=== PATIENT | female | born 1955 | race Caucasian/White ===

== ENCOUNTER → 2018-10-05 07:27 | Outpatient (CLI) | payer BC, SELFPAY ==
--- NOTE | 2018-10-05 07:34 | RAD_ITS ---
STUDY: X-RAY - ABDOMEN/PELVIS REASON FOR EXAM: Female, 63 years old. left sided pain x several months constipation TECHNIQUE: AP supine and upright views of the abdomen and pelvis. 3 images COMPARISON: None. FINDINGS: Normal visualized lung bases. There is no evidence of obstruction. There is a possibility stool with a few air-fluid levels on upright imaging in nondilated bowel. No pneumatosis or signs of bowel wall thickening. There is no demonstrated free abdominal air. The visualized liver, spleen and kidneys are grossly normal in size and morphology. There are calcified phleboliths in the pelvis. Mild degenerative spondylosis of the spine is noted with mild levoscoliosis. RAD/Abd Inc Decub and/or Erect IMPRESSION: No evidence of obstruction. There does appear paucity of stool with a few air-fluid levels on upright imaging in nondilated bowel. Consider enteritis. Electronically Signed: Natacha Kaplan MD at 8:35 EST , Service support ,
== END ==
PROVIDERS: Family Provider Family Medicine; PCP Family Medicine; Referring Provider Family Medicine; Visit Provider Family Medicine
DX: R10.9 Unspecified abdominal pain (principal)
CPT/HCPCS: 74019

== ENCOUNTER → 2019-02-17 12:03 | Outpatient (CLI) | payer BC, SELFPAY ==
[2019-02-17 14:16] LABS: Erythrocyte Sedimentation Rate 6 mm/hr (0-30)
[2019-02-17 14:18] LABS: Absolute Lymphocyte Count 1.32 X10^3/ul (0.83-4.51); Absolute Neutrophil Count 3.5 X10^3/uL (2.0-7.7); Basophil# 0.01 X10^3/uL; Basophil% 0.2 % (0-1); Eosinophil# 0.14 X10^3/uL; Eosinophils% 2.6 % (0-5); Hematocrit 40.2 % (37-47); Hemoglobin 12.9 g/dl (12.0-15.0); Lymphocyte # 1.32 X10^3/ul (4.0); Lymphocyte % 24.2 % (19-41); Mean Corp Hgb Conc 32.1 g/gl (32-36); Mean Corpuscular Hgb 29.7 pg (27.0-32.0); Mean Corpuscular Volume 92.6 fL (81-99); Monocyte# 0.49 X10^3/uL; Neutrophil # 3.49 X10^3/uL (2.7-7.7); Platelet Count 271 K/mm3 (150-450); RBC Distribution Width CV 13.3 % (11.6-14.6); RBC Distribution Width SD 45.1 fl (35.1-43.9); Red Blood Count 4.34 M/mm3 (4.2-5.4); White Blood Count 5.5 K/mm3 (4.4-11.0)
[2019-02-17 14:19] LABS: POSITIVE COUNT NO; POSITIVE DIFFERENTIAL NO; POSITIVE MORPHOLOGY NO
[2019-02-17 14:45] LABS: ALB/GLOB Ratio 1.6 RATIO (0.9-2.4); AST(SGOT) 18 U/L (15-37); Alanine Aminotransfer ALT/SGPT 30 U/L (13-56); Albumin, Serum 4.4 g/dL (3.2-5.0); Alkaline Phosphatase 88 U/L (45-117); Anion Gap 8 (5-15); BUN 16 mg/dL (7-18); BUN/Creat Ratio 25.9 RATIO (10-20); CRP 6.77 mg/L (0.0-3.0); Chloride 104 mmol/L (98-107); Creatinine, Serum 0.62 mg/dL (0.55-1.02); EST Glomerular Filtration Rate 104 mL/min (>60); Est Glom Filt Rate - Afr Amer 126 mL/min (>60); Globulin 2.7 g/dL (2.2-4.2); Glucose 72 mg/dL (74-106); Potassium 4.5 mmol/L (3.5-5.1); Protein, Total 7.1 g/dL (6.4-8.2); Sodium Level 141 mmol/L (136-145)
== END ==
PROVIDERS: Family Provider Family Medicine; PCP Family Medicine; Referring Provider Family Medicine; Visit Provider Family Medicine
DX: R10.32 Left lower quadrant pain (principal)
CPT/HCPCS: 36415; 80053; 85025; 85652; 86140

== ENCOUNTER → 2019-03-22 14:01 | Outpatient (CLI) | payer BC, SELFPAY ==
--- NOTE | 2019-03-22 14:06 | CT_ITS ---
HISTORY: RIGHT [facility]AMINATION: CT Abdomen And Pelvis W/O Contrast TECHNIQUE: Helically acquired images were obtained of the abdomen and pelvis without oral or IV contrast as per renal stone protocol. A radiation dose optimization technique was used for this scan. IV Contrast dosage and agent: None. Oral contrast: None. COMPARISON: 04/13/16 CT abdomen pelvis. Images without report. FINDINGS: LOWER CHEST: Lung bases are clear. No cardiomegaly or pericardial effusion observed. LIVER: Homogeneous. No focal mass. GALLBLADDER AND BILIARY TREE: No calcified gallstones. There is no gallbladder distension or wall edema. No intra- or extrahepatic biliary ductal dilation. KIDNEYS AND URETERS: Normal renal size and position. There is no hydronephrosis or nephrolithiasis. ADRENAL GLANDS: Non-enlarged. SPLEEN: Normal size without focal cystic or solid mass. PANCREAS: No focal cystic or solid mass. BOWEL: No evidence of acute appendicitis. No stomach or bowel distension. No focal inflammatory change observed. Mildly prominent volume of stool in the large bowel. LYMPH NODES: No enlarged mesenteric or retroperitoneal lymph nodes. PERITONEUM: No ascites or free air. No other fluid collection. VESSELS: Moderate atherosclerosis. No abdominal aortic aneurysm. URINARY BLADDER: Unremarkable. REPRODUCTIVE ORGANS: Uterus and ovaries with unremarkable noncontrast CT appearance. Bilateral tubal ligation clips are noted. ABDOMINAL WALL: No discrete abdominal or pelvic wall hernia observed. BONES: No lytic or blastic abnormality observed. CT/Abdomen/Pelvis without Cont IMPRESSION: Negative renal stone CT scan. Individualized dose optimization techniques were used for this CT. at 1444 Reported and signed by: Keon Malik MD Electronically Signed: Keon Malik, at 14:43 EDT Tel , Service support ,
== END ==
PROVIDERS: Family Provider Family Medicine; PCP Family Medicine; Referring Provider Urology; Visit Provider Urology
DX: N20.0 Calculus of kidney (principal); M54.5 Low back pain
CPT/HCPCS: 74176

== ENCOUNTER → 2019-10-03 17:30 | Outpatient (CLI) | payer BC, SELFPAY ==
--- NOTE | 2019-10-03 17:24 | BI_ITS ---
MAMMOGRAPHY - BILATERAL SCREENING REASON FOR EXAM: Female, 64 years old. Routine annual screening examination. PERTINENT HISTORY: Non-contributory. TECHNIQUE: Digital bilateral breast zay (3D mammographic acquisition) in the CC and MLO projections. 2-D mediolateral oblique (MLO) and craniocaudad (CC) views of both breasts were obtained. CAD: Full Field Digital Mammography with Computer Added Detection was performed. COMPARISON: Comparison is made with prior examination dated March 02, 2017 and January 25, 2014. FINDINGS: Breast Composition: There are scattered areas of fibroglandular density. There are no dominant masses or suspicious calcifications. Small bilateral benign-appearing axillary lymph nodes. No other significant abnormalities are identified. There has been no significant change since the prior study. BI/SCREEN MAMM (CAD) W/ZAY BILAT IMPRESSION: Stable bilateral screening mammogram. Yearly follow-up mammogram recommended. (A) ASSESSMENT CATEGORY: BIRADS Category 2: Benign. A letter regarding these results will be sent to the patient by the facility within 30 days. Approximately 10% of breast cancers are not detected by mammography. A normal mammogram should not delay biopsy of a clinically suspicious abnormality. [id number] Electronically Signed: Bc Ferrera, at 8:46 EST , Service support ,
== END ==
PROVIDERS: Family Provider Family Medicine; PCP Family Medicine; Referring Provider Family Medicine; Visit Provider Family Medicine
DX: Z12.31 Encounter for screening mammogram for malignant neoplasm of breast (principal)
CPT/HCPCS: 77063; 77067

== ENCOUNTER → 2021-04-14 16:28 | Outpatient (CLI) | payer OTHER, SELFPAY ==
[2021-04-14 15:25] VITALS: BMI 30.2
[2021-04-18 16:36] LABS: HPV APTIMA, High Risk Negative (Negative)
== END ==
PROVIDERS: PCP Family Medicine; Referring Provider Obstetrics & Gynecology; Visit Provider Obstetrics & Gynecology
DX: Z12.4 Encounter for screening for malignant neoplasm of cervix (principal)
CPT/HCPCS: 87624; 88175; G0145

== ENCOUNTER → 2021-06-06 07:44 | Outpatient (CLI) | payer OTHER, SELFPAY ==
[2021-04-14 15:25] VITALS: BMI 30.2
--- NOTE | 2021-06-05 16:31 | BI_ITS ---
MAMMOGRAPHY - BILATERAL SCREENING REASON FOR EXAM: Female, 65 years old. Routine annual screening examination. PERTINENT HISTORY: Non-contributory. TECHNIQUE: Digital bilateral breast zay (3D mammographic acquisition) in the CC and MLO projections. 2-D mediolateral oblique (MLO) and craniocaudad (CC) views of both breasts were obtained. CAD: Full Field Digital Mammography with Computer Added Detection was performed. COMPARISON: Comparison is made with prior examination dated 10/03/2019 and 03/02/2017. FINDINGS: Breast Composition: There are scattered areas of fibroglandular density. There is a new 7.8 mm x 8 mm well-defined nodule in the central deep portion of the left breast. Correlation with ultrasound is recommended. Stable small benign appearing bilateral axillary lymph nodes. No other significant abnormalities are identified. BI/SCRN MAMM (CAD)W/ZAY BILAT IMPRESSION: 7.8 mm x 8 mm well-defined nodule in the central deep portion of the left breast. Correlation with ultrasound is recommended. ASSESSMENT CATEGORY: BIRADS Category 0: Incomplete. Need additional imaging evaluation. A letter regarding these results will be sent to the patient by the facility within 30 days. Approximately 10% of breast cancers are not detected by mammography. A normal mammogram should not delay biopsy of a clinically suspicious abnormality. [id number] Electronically Signed: Bc Ferrera MD at 8:18 EDT , Service support ,
== END ==
PROVIDERS: PCP Family Medicine; Referring Provider Family Medicine; Visit Provider Family Medicine
DX: Z12.31 Encounter for screening mammogram for malignant neoplasm of breast (principal); N63.20 Unspecified lump in the left breast, unspecified quadrant
CPT/HCPCS: 77063; 77067

== ENCOUNTER → 2021-06-17 14:50 | Outpatient (CLI) | payer OTHER, SELFPAY ==
[2021-04-14 15:25] VITALS: BMI 30.2
--- NOTE | 2021-06-17 14:55 | US_ITS ---
STUDY: ULTRASOUND BREAST - LEFT REASON FOR EXAM: Female, 65 years old. Abnormal screening mammogram. TECHNIQUE: Axial and longitudinal images of the LEFT breast were performed with a high resolution ultrasound transducer. # OF IMAGES: 31 COMPARISON: Comparison is made with prior mammogram dated 06/05/2021. FINDINGS: LEFT Breast: The mammographic abnormality corresponds to a 6 mm x 7.8 mm x 4 mm cyst in the retroareolar region of the breast. US/Breast Limited Unilateral IMPRESSION: The mammographic abnormality corresponds to a 6 mm x 7.8 mm x 4 mm cyst in the retroareolar areolar region of the breast. ASSESSMENT CATEGORY: BIRADS Category 2: Benign. A letter regarding these results will be sent to the patient by the facility within 30 days. Electronically Signed: Bc Ferrera MD at 15:32 EDT , Service support ,
== END ==
PROVIDERS: PCP Family Medicine; Referring Provider Obstetrics & Gynecology; Visit Provider Obstetrics & Gynecology
DX: R92.8 Other abnormal and inconclusive findings on diagnostic imaging of breast (principal)
CPT/HCPCS: 76642

== ENCOUNTER → 2021-07-17 09:40 | Outpatient (CLI) | payer OTHER, SELFPAY | PROVIDERS: PCP Family Medicine; Referring Provider Obstetrics & Gynecology; Visit Provider Obstetrics & Gynecology | DX: R30.0 Dysuria (principal) | CPT/HCPCS: 87086; 87088; 87186 ==

== ENCOUNTER 2022-01-26 17:43 | Outpatient (CLI) | payer BC, SELFPAY | END 2022-01-26 23:59 | disposition home or self-care (01) | PROVIDERS: PCP Family Medicine; Referring Provider Family Medicine; Visit Provider Family Medicine | DX: U07.1 COVID-19 (principal) | CPT/HCPCS: 87635; U0003; U0005 ==

== ENCOUNTER 2022-01-28 14:16 | Outpatient (CLI) | payer BC, SELFPAY ==
[2022-01-28] MEDS: 0.9% Saline Lock 10 ML Syringe IV (14:35)
[2022-01-28 14:36] VITALS: BP 131/81; PULSE 91; RESP 16; TEMP 37.1; O2SAT 99; BMI 31.7
[2022-01-28 15:13] VITALS: BP 127/80; PULSE 72; RESP 16; TEMP 36.9; O2SAT 97
[2022-01-28 16:11] VITALS: BP 123/89; PULSE 82; RESP 16; TEMP 36.7; O2SAT 99
== END 2022-01-28 23:59 | disposition home or self-care (01) ==
LOC: MS3OUT 14:18 → MS3 14:18
PROVIDERS: PCP Family Medicine; Referring Provider Nurse Practitioner Adult Health; Visit Provider Nurse Practitioner Adult Health
DX: U07.1 COVID-19 (principal)
CPT/HCPCS: 96365; J7050; M0247; A4216; Q0247

== ENCOUNTER → 2022-06-11 | Outpatient (CLI) | payer BC, SELFPAY ==
--- NOTE | 2022-06-11 14:01 | RAD_ITS ---
STUDY: X-RAY - LEFT KNEE REASON FOR EXAM: Female, 66 years old. PAIN IN KNEE TECHNIQUE: 4 view(s) of the knee. COMPARISON: None. FINDINGS: BONES: No fracture demonstrated. Mild joint space narrowing at the patellofemoral joint space. JOINTS: No dislocation. SOFT TISSUES: Small joint effusion. RAD/Knee 4 or More Views IMPRESSION: Mild degenerative changes. Small joint effusion. Electronically Signed: Jessi Oliver MD at 7:57 EDT ,
== END | disposition home or self-care (01) ==
LOC: MTRAD 13:59
PROVIDERS: PCP Family Medicine; Referring Provider Family Medicine; Visit Provider Family Medicine
DX: M25.562 Pain in left knee (principal)
CPT/HCPCS: 73564

== ENCOUNTER 2022-07-06 10:53 | Emergency (ER) | payer BC, SELFPAY ==
[2022-07-06 10:55] VITALS: BP 116/105; PULSE 82; RESP 17; TEMP 36.2; O2SAT 99; BMI 33.5
--- NOTE | 2022-07-06 12:04 | ED.VIS.LOWEX ---
HPI History of Present Illness HPI Narrative: Patient presents with left knee pain that became worse today. Patient states she injured her knee 3 weeks ago and had x-rays done at an urgent care. Patient states there was no fracture. Patient states she was told there could be a meniscal tear. Patient states she has been feeling some popping and cracking since the injury. Patient states that today while she was walking at work she felt a crack in her knee. Patient states she has been unable to bear weight and ambulate due to the pain since that time today. Patient describes her pain as stabbing. Patient states her pain is worse with standing and better with rest. Patient denies any paresthesias or weakness. Patient denies any radiation of the pain. Chief Complaint: Lower Extremity Injury Informant: patient Occured/Mechanism Comment: [place] a crack in her knee while walking today Onset/Context/Timing Onset: Weeks (3) Context: Sudden Onset Timing: Continuous Quality of Pain: Stabbing Location: Left knee Worsened by: Standing, ambulation Relieved by: Rest Associated Symptoms Associated Symptoms: Negative for Parasthesia, Weakness or Loss of Funtion PFSH PFSH Medical History no medical history no medical history Home Medications NK 07/06/22 [History Last Taken Unknown] Allergy/AdvReac Type Severity Reaction Status Date / Time No Known Allergies Allergy Verified 07/06/22 10:54 Family History Father Diabetes Prostate cancer Mother Osteoarthritis Sister Autoimmune disease Brother CAD (coronary artery disease) Retinal toxoplasmosis Surgical History S/P tubal ligation Social History Smoking Status: Never smoker alcohol intake: current alcohol intake frequency: holidays/special occasions only substance use type: does not use caffeine: Yes what type of physical activity do you participate in: none seatbelt use: always do you feel safe at home: Yes additional social history: -[facility] Constitutional Constitutional ED: Denies chills or fever(s) Eyes Eyes: Denies blurry vision or change in vision ENT ENT ED: Denies rhinorrhea or sore throat Cardiovascular Cardiovascular: Denies chest pain or palpitations Respiratory/Chest Respiratory/Chest: Denies cough or dyspnea Gastrointestinal Gastrointestinal: Denies nausea or vomiting Genitourinary Genitourinary ED: Denies dysuria or hematuria Musculoskeletal Musculoskeletal: Denies back pain or neck pain Integumentary Denies abscess or rash Neurologic Neurologic: Denies headache(s) or weakness Allergic/Immunologic Allergic/Immunologic ED: Denies mouth swelling or urticaria EXAM Physical Exam Const Vital Signs: 07/06/22 10:55 07/06/22 13:04 Temperature 97.2 F L 97.9 F Temperature Source Temporal Oral Pulse Rate 82 73 Respiratory Rate 17 16 Blood Pressure 116/105 H 140/85 H Blood Pressure Mean 108 103 Pulse Ox 99 97 Oxygen Delivery Method Room Air Room Air Positive well nourished and well developed General Appearance ED: well developed and NAD HEENT Reports moist mucous membranes Extremity Extremity Narrative: There is tenderness over the posterior lateral aspect of the left knee. There is no effusion. Range of motion was slightly limited in flexion secondary to pain. There is no obvious deformity. There is no laxity appreciated. Pedal pulses are equal bilaterally. Sensation was intact to light touch in all digits. Capillary refills less than 2 seconds in all digits. Neuro oriented x3, CN's II-XII intact bilaterally, moves all extremities and no sensory deficits noted Sensorium / Orientation: alert Motor Exam: strength 5/5 throughout Psych mental status grossly normal MDM MDM MDM Narrative Medical decision making narrative: X-rays of the left knee were obtained. There are 4 views. On my interpretation, there is no acute fracture. There is no dislocation. There is no effusion. There is no soft tissue swelling. Radiologist also interpreted the x-rays and agrees. Patient was given a knee immobilizer. Patient was given crutches. Patient was instructed to ice and elevate the left knee. Patient was advised that this could be an injury to the meniscus. Patient was advised that she may need an MRI to evaluate that. Patient was instructed to follow-up with her primary care physician in 5 to 7 days. Patient understood and was agreeable with the plan. All questions were answered. Radiography Diagnostic Testing: Clinical Impression(s) from Imaging Studies Knee X-Ray 07/06/22 12:09 IMPRESSION: Normal x-ray examination of the knee. Electronically Signed: Bc Ferrera MD at 13:09 EDT , Discharge Plan Triage Chief Complaint: Lower Extremity Injury ED Provider: Chirag Díaz Dx/Rx/DC Orders Clinical Impression: Sprain of left knee Instructions: ED Meniscal Injury Knee Poss, ED Knee Sprain Prescriptions: No Action NK Primary Care Provider: Chirag Owen Referrals: Chirag Owen MD [Primary Care Provider] - 5-7 Days Disposition Disposition: Home, Self Care
--- NOTE | 2022-07-06 12:09 | RAD_ITS ---
STUDY: X-RAY - LEFT KNEE REASON FOR EXAM: Female, 67 years old. Injury/Pain TECHNIQUE: 4 view(s) of the knee. COMPARISON: Comparison is made with prior examination dated 06/11/2022. FINDINGS: Normal visualized distal femur. Normal visualized proximal tibia and fibula. Normal proximal tibiofibular articulation. Normal medial femorotibial compartment. Normal lateral femorotibial compartment. Normal patellofemoral articulation. The soft tissue structures are unremarkable. RAD/Knee 4 or More Views IMPRESSION: Normal x-ray examination of the knee. Electronically Signed: Bc Ferrera MD at 13:09 EDT ,
[2022-07-06 13:04] VITALS: BP 140/85; PULSE 73; RESP 16; TEMP 36.6; O2SAT 97
[2022-07-06 14:16] VITALS: BP 148/83; PULSE 82; RESP 16; O2SAT 98
== END 2022-07-06 14:20 | disposition home or self-care (01) ==
PROVIDERS: Emergency Provider Emergency Medicine; PCP Family Medicine; Visit Provider Emergency Medicine
DX: S83.92XA Sprain of unspecified site of left knee, initial encounter (principal); X58.XXXA Exposure to other specified factors, initial encounter; Y93.01 Activity, walking, marching and hiking
CPT/HCPCS: 73564; 99284

== ENCOUNTER → 2022-07-31 | Outpatient (CLI) | payer BC, SELFPAY ==
[2022-07-31 10:03] LABS: Absolute Neutrophil Count 3.6 X10^3/uL (2.0-7.7); Basophil# 0.04 X10^3/uL; Basophil% 0.7 % (0-1); Eosinophil# 0.08 X10^3/uL; Eosinophils% 1.5 % (0-5); Hematocrit 41.8 % (37-47); Hemoglobin 13.9 g/dL (12.0-15.0); Mean Corp Hgb Conc 33.3 g/dL (32-36); Mean Corpuscular Hgb 30.6 pg (27.0-32.0); Mean Corpuscular Volume 92.1 fL (81-99); Mean Platelet Vol. 9.8 fl (6.2-12.0); Monocyte# 0.56 X10^3/uL; Monocyte% 10.3 % (0-10); NRBC Flagged by Analyzer 0 % (0-5); Neutrophil # 3.55 X10^3/uL (2.7-7.7); Neutrophil % 65.1 % (47-70); Platelet Count 276 K/mm3 (150-450); RBC Distribution Width CV 13.1 % (11.6-14.6); Red Blood Count 4.54 M/mm3 (4.2-5.4); White Blood Count 5.5 K/mm3 (4.4-11.0)
[2022-07-31 10:38] LABS: Anion Gap 6 (5-15); BUN 17 mg/dL (7-18); BUN/Creat Ratio 25.4 RATIO (10-20); Calcium,Total 9.2 mg/dL (8.5-10.1); Chloride 106 mmol/L (98-107); Cholesterol 278 mg/dL (200); Creatinine, Serum 0.67 mg/dL (0.55-1.02); EST Glomerular Filtration Rate 93 mL/min (>60); Est Glom Filt Rate - Afr Amer 113 mL/min (>60); Glucose 95 mg/dL (74-106); High Density Lipoprotein 68 mg/dL; Sodium Level 139 mmol/L (136-145); Triglycerides 93 mg/dL; Very Low Density Lipoprotein 19 mg/dL (5-40)
== END | disposition home or self-care (01) ==
LOC: MFPLAB 09:07
PROVIDERS: PCP Family Medicine; Visit Provider Family Medicine
DX: Z01.818 Encounter for other preprocedural examination (principal)
CPT/HCPCS: 36415; 80048; 80061; 85025

== ENCOUNTER → 2024-03-09 | Outpatient (CLI) | payer BC, SELFPAY ==
[2024-03-13 00:06] LABS: Chlamydia By Nucleic Acid AMP Negative (Negative); Gonococcus By Nucleic Acid AMP Negative (Negative)
== END | disposition home or self-care (01) ==
PROVIDERS: PCP Family Medicine; Visit Provider Nurse Practitioner Women's Health
DX: N89.8 Other specified noninflammatory disorders of vagina (principal)
CPT/HCPCS: 87070; 87205; 87491; 87591

== ENCOUNTER → 2024-05-01 | Outpatient (CLI) | payer BC, SELFPAY ==
--- NOTE | 2024-05-01 15:51 | BI_ITS ---
MAMMOGRAPHY - BILATERAL SCREENING REASON FOR EXAM: Female, 68 years old. Routine annual screening examination. PERTINENT HISTORY: Non-contributory. TECHNIQUE: Digital bilateral breast zay (3D mammographic acquisition) in the CC and MLO projections. 2-D mediolateral oblique (MLO) and craniocaudad (CC) views of both breasts were obtained. CAD: Full Field Digital Mammography with Computer Added Detection was performed. COMPARISON: Comparison is made with prior study dated June 05, 2021 and October 03, 2019. FINDINGS: Breast Composition: There are scattered areas of fibroglandular density. There are no dominant masses or suspicious calcifications. The previously seen 8 mm well-defined nodule in the central deep portion of the left breast is not well seen at this time and most likely represents resorption of a cyst. No other significant abnormalities are identified. There has been no significant change since the prior study. BI/SCRN MAMM (CAD)W/ZAY BILAT IMPRESSION: Stable bilateral screening mammogram. Yearly follow-up mammogram recommended. (A) ASSESSMENT CATEGORY: BIRADS Category 2: Benign. A letter regarding these results will be sent to the patient by the facility within 30 days. Approximately 10% of breast cancers are not detected by mammography. A normal mammogram should not delay biopsy of a clinically suspicious abnormality. [id number] Electronically Signed: Bc Ferrera MD at 8:49 EDT ,
== END | disposition home or self-care (01) ==
LOC: OPBI 15:51
PROVIDERS: PCP Family Medicine; Referring Provider Nurse Practitioner Women's Health; Visit Provider Nurse Practitioner Women's Health
DX: Z12.31 Encounter for screening mammogram for malignant neoplasm of breast (principal)
CPT/HCPCS: 77063; 77067

== ENCOUNTER → 2024-07-10 | Outpatient (CLI) | payer BC, SELFPAY ==
[2024-07-13 07:09] LABS: Chlamydia By Nucleic Acid AMP Negative (Negative); Gonococcus By Nucleic Acid AMP Negative (Negative)
== END | disposition home or self-care (01) ==
LOC: LABSPEC 14:56
PROVIDERS: PCP Family Medicine; Referring Provider Nurse Practitioner Women's Health; Visit Provider Nurse Practitioner Women's Health
DX: R10.2 Pelvic and perineal pain (principal)
CPT/HCPCS: 87491; 87591

== ENCOUNTER → 2024-07-19 | Outpatient (CLI) | payer BC, SELFPAY ==
--- NOTE | 2024-07-19 17:38 | US_ITS ---
STUDY: ULTRASOUND OF THE FEMALE PELVIS - COMPLETE REASON FOR EXAM: Female, 69 years old. Pelvic pain. LMP: Postmenopausal. TECHNIQUE: Transabdominal and Transvaginal TECHNICAL QUALITY: Adequate. COMPARISON: None. FINDINGS: The uterus is retroverted and is in a midline position. The uterus measures 6.8 cm x 5.7 cm x 4 cm. Normal uterine cervix. The endometrium is slightly thickened and measures 4 mm in thickness, and is fluid distended. There is no demonstrated endometrial mass. There is no demonstrated myometrial mass. I.U.D. - The patient does not have an I.U.D. The right ovary is visualized. The right ovary measures 1.9 cm x 0.9 cm x 0.8 cm. There is no right ovarian cyst or ovarian mass. There is no visualized right adnexal mass or complex lesion. There is normal arterial and normal venous vascularity. The left ovary is visualized. The left ovary measures 2 cm x 1.4 cm x 1.1 cm. There is a 1.8 cm x 1 cm x 0.8 cm follicle adjacent to the left ovary. There is no visualized left adnexal mass or complex lesion. There is normal arterial and normal venous vascularity. There is no fluid in the cul-de-sac. The pre void volume of the bladder was 256 ml. US/Pelvic w/ Transvaginal IMPRESSION: Minimal thickening of the endometrium and fluid distended. 1.8 cm x 1 cm x 0.8 some with follicle adjacent to the left ovary. Electronically Signed: Bc Ferrera MD at 15:39 EDT ,
== END | disposition home or self-care (01) ==
LOC: US 17:33
PROVIDERS: PCP Family Medicine; Referring Provider Nurse Practitioner Women's Health; Visit Provider Nurse Practitioner Women's Health
DX: R10.2 Pelvic and perineal pain (principal)
CPT/HCPCS: 76830; 76856

== ENCOUNTER → 2024-08-16 | Outpatient (CLI) | payer BC, SELFPAY ==
--- NOTE | 2024-08-16 12:44 | US_ITS ---
STUDY: ULTRASOUND OF THE FEMALE PELVIS - COMPLETE REASON FOR EXAM: Female, 69 years old. Chronic pelvic pain LMP: TECHNIQUE: Transabdominal and Transvaginal TECHNICAL QUALITY: Adequate. COMPARISON: 07/19/2024. FINDINGS: The uterus is retroverted and is in a midline position. The uterus measures 6.9 x 5.0 x 3.3 cm. Normal uterine cervix. The endometrium measures 3 mm in thickness, and is hyperechoic. Trace fluid of the endocervical canal. There is no demonstrated endometrial mass. There is no demonstrated myometrial mass. I.U.D. - The patient does not have an I.U.D. The right ovary is visualized. The right ovary measures 2.7 x 1.4 x 0.9 cm. There is no right ovarian cyst or ovarian mass. There is no visualized right adnexal mass or complex lesion. There is normal arterial and normal venous vascularity. The left ovary is visualized. The left ovary measures 2.5 x 1.5 x 1.2 cm. There is a 1.9 cm cyst. There is no visualized left adnexal mass or complex lesion. There is normal arterial and normal venous vascularity. There is no fluid in the cul-de-sac. The pre void volume of the bladder was 552 ml. US/Pelvic w/ Transvaginal IMPRESSION: No definite acute or significant abnormality seen. Electronically Signed: Gopi Eckert MD at 22:20 EDT ,
== END | disposition home or self-care (01) ==
PROVIDERS: PCP Family Medicine; Referring Provider Nurse Practitioner Women's Health; Visit Provider Nurse Practitioner Women's Health
DX: R10.2 Pelvic and perineal pain (principal)
CPT/HCPCS: 76830; 76856

== ENCOUNTER → 2024-10-19 | Outpatient (CLI) | payer BC, SELFPAY ==
--- NOTE | 2024-10-19 09:43 | RAD_ITS ---
STUDY: X-RAY - LEFT HAND, ATTENTION FIRST FINGER REASON FOR EXAM: Female, 69 years old. Left thumb pain TECHNIQUE: 3 view(s) of the finger were obtained. COMPARISON: None. FINDINGS: Osteopenia. Moderate arthrosis of the radial carpal row of the wrist with subchondral cyst formation in the trapezium. Moderate to severe arthrosis of the first CMC joint with osteophytes and sclerosis. Small ossicles/intra-articular osteochondral bodies of the first CMC joint. Moderate arthrosis of the first MCP and IP joints. Normal soft tissues. 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 No other abnormality. Electronically Signed: Jeet Peace MD at 10:50 EST ,
== END | disposition home or self-care (01) ==
PROVIDERS: PCP Family Medicine
DX: R68.89 Other general symptoms and signs (principal); M79.645 Pain in left finger(s); R10.32 Left lower quadrant pain
CPT/HCPCS: 73140

== ENCOUNTER → 2025-01-03 | Outpatient (CLI) | payer BC, SELFPAY ==
--- NOTE | 2025-01-03 17:50 | CT_ITS ---
PROCEDURE: ABDOMEN/PELVIS WITH CONTRAST REASON FOR EXAM: Left lower quadrant abdominal pain TECHNIQUE: Abdomen and pelvis CT with intravenous contrast. Oral contrast was also used. IV CONTRAST: COMPARISON: None. FINDINGS: Lung bases: Clear Liver: Unremarkable. Gallbladder: Decompressed gallbladder. Spleen: Unremarkable. Pancreas: Tiny low attenuating lesion within the pancreatic tail, too small to characterize. Adrenals: Unremarkable. Kidneys: Unremarkable. Bladder: Unremarkable. Reproductive Organs: Unremarkable. Bowel: Oral contrast reaches the distal small bowel. The stomach appears grossly unremarkable. No inflammatory changes of the small large bowel. Mild stool burden within the right colon. Appendix: The appendix is not identified. There is no inflammatory process identified in the right lower quadrant to suggest appendicitis. Lymph nodes: No suspicious lymph node enlargement. Vasculature: Mild diffuse atherosclerotic calcifications are noted. Peritoneum / Retroperitoneum: No ascites. No free air. Bones: Unremarkable. CT/Abdomen/Pelvis WITH Contrast IMPRESSION: No inflammatory changes of the bowel loops are demonstrated. One or more dose reduction techniques were used (e.g., Automated exposure contr ol, adjustment of the mA and/or kV according to patient size, use of iterative reconstruction technique). Reading Location: [id number]
== END | disposition home or self-care (01) ==
PROVIDERS: PCP Family Medicine; Referring Provider Family Medicine; Visit Provider Family Medicine
DX: R10.32 Left lower quadrant pain (principal)
CPT/HCPCS: 74177; Q9967

== ENCOUNTER 2025-04-29 17:13 | Emergency (ER) | payer MEDICARE, SELFPAY ==
[2025-04-29 17:14] VITALS: BP 155/83; PULSE 83; RESP 16; TEMP 36.7; O2SAT 98; BMI 32.5
--- NOTE | 2025-04-29 17:26 | ED.VIS.LOWEX ---
HPI History of Present Illness Chief Complaint: Lower Extremity Injury Narrative Narrative: 69-year-old female presents with right knee pain that has increased today. She and her partner relate history that she had a fall a few days ago onto her right knee. She had been able to ambulate. Today, she states that her knee pain has increased significantly. She denies any fevers or chills, no redness to the area. The pain is extreme in her knee that she is only able to crawl and is unable to bear weight on it. She is having problems extending it as well. She denies that when she fell she had any hitting of her head or loss of consciousness. PFSH [facility] Medical History Pain of left thumb History of meniscal tear Left shoulder pain COVID-19 Home Medications ?Medication ?Instructions ?Recorded ?Last Taken ?Type oxycodone 5 mg tablet 5 mg PO Q6H PRN pain 3 days #12 04/29/25 Unknown Rx tabs Allergy/AdvReac Type Severity Reaction Status Date / Time No Known Allergies Allergy Verified 04/29/25 17:14 Family History Father Diabetes Prostate cancer Mother Osteoarthritis Sister Autoimmune disease Brother CAD (coronary artery disease) Retinal toxoplasmosis Surgical History S/P tubal ligation Social History Smoking Status: Never smoker alcohol intake: current alcohol intake frequency: holidays/special occasions only substance use type: does not use caffeine: Yes what type of physical activity do you participate in: none seatbelt use: always do you feel safe at home: Yes additional social history: ROS ROS ED ROS Narrative Review of systems positive for right knee pain. No fevers or chills, no nausea or vomiting. Pain worse with movement and weightbearing. Unable to walk. EXAM Physical Exam Narrative Exam Narrative: GCS 15. ABCs intact. Cardiovascular examination regular rate and rhythm. Lungs clear to auscultation bilaterally. Abdomen soft nontender. Neurological examination nonfocal and nonlateralizing. Patient is holding her knee in flexion on the right. She appears neurovascularly intact distally with a dorsalis pedis pulse that is palpable. She has mild tenderness in the right posterior medial biceps for Deven tendon, no crepitance. She also has pain along the lateral collateral ligament and in the medial meniscal line. Const Vital Signs: 04/29/25 17:14 Temperature 98.1 F Temperature Source Oral Pulse Rate 83 Respiratory Rate 16 Blood Pressure 155/83 H Blood Pressure Mean 107 Pulse Ox 98 Oxygen Delivery Method Room Air MDM MDM MDM Narrative Medical decision making narrative: Differential diagnosis includes but not limited to knee contusion versus medial meniscus cartilage tear versus medial collateral ligament tear versus biceps for Deven strain/sprain. I have low suspicion for DVT or arthritis as the history and physical does not support this. I do not feel that she requires any laboratory work or arthrocentesis. She was administered oxycodone and x-rays were obtained of the right knee and 4 views. They were interpreted by myself independently. I see no evidence of an acute fracture or effusion. I reviewed the radiology report which comments on the superior patellar enthesophyte which is not attached to the patella and could be fractured. It is of indeterminate chronicity favored remote given no significant joint effusion or soft tissue swelling. On direct correlation, she is not having tenderness in that area. At this point in time, there is mild arthritis noted on x-ray as well. I feel she can be discharged to follow-up with orthopedics. She probably has more of an internal derangement of her knee. She will be placed in a knee immobilizer and given a walker to help with ambulation. She can be touchdown weightbearing. Additionally, I discussed with her the possibility of observation given her inability to ambulate freely, but she declined. She was written for a walker, and 12 oxycodone 5 mg tablets to help with analgesia. She will follow-up with orthopedics as an outpatient. Return instructions to the emergency department were reviewed. Disposition is discharge, home in stable condition. History & Record Review Discussion w/independent historian: Patient Radiography X-Ray: Read by ED Physician, Read by Radiologist and No Fracture Diagnostic Testing: Clinical Impression(s) from Imaging Studies Knee X-Ray 04/29/25 17:30 IMPRESSION: 1. Superior patellar enthesophyte which is not attached to the patella, and could be fractured. This finding is of indeterminate chronicity, favored remote given no significant joint effusion or soft tissue swelling. Correlate for tenderness to palpation. 2. Mild osteoarthritis. Reading Location: [id number] Discharge Plan Triage Chief Complaint: Lower Extremity Injury ED Provider: Florentin Briceno Dx/Rx/DC Orders Clinical Impression: Knee pain, right, Internal derangement of right knee Instructions: ED Meniscal Injury Knee Poss, ED Home Care For Knee Pain, ED Knee Sprain Ligaments Prescriptions: New oxycodone 5 mg tablet 5 mg PO Q6H PRN (Reason: pain) 3 Days Qty: 12 0RF Primary Care Provider: Estefania Braxton Referrals: Chirag Owen MD [Med Staff - Outside Residential Sales Professional] - Robbin Mcelroy DO [Med Staff - Active Staff] - As soon as possible Activity Restrictions/Additional Instructions: Follow-up with orthopedics as soon as possible. Return to the emergency department with fever, redness to right knee, new or worsening symptoms. Print Language: Khmer Disposition Disposition: Home, Self Care
--- NOTE | 2025-04-29 17:30 | RAD_ITS ---
PROCEDURE: KNEE 4 OR MORE VIEWS 04/29/2025 REASON FOR EXAM: TRAUMA, PAIN TECHNIQUE: 4 view(s) of the right knee COMPARISON: None FINDINGS: There is a tiny osseous fragment just superior to the patella. Mild joint space narrowing in the medial and patellofemoral compartments. No significant joint effusion. The soft tissues are unremarkable. RAD/Knee 4 or More Views IMPRESSION: 1. Superior patellar enthesophyte which is not attached to the patella, and co uld be fractured. This finding is of indeterminate chronicity, favored remote given no significant joint effusion or soft tissue swelling. Correlate for tenderness to palpation. 2. Mild osteoarthritis. Reading Location: [facility]
[2025-04-29] MEDS: oxyCODONE 5 MG Tablet PO (17:31)
== END 2025-04-29 18:40 | disposition home or self-care (01) ==
PROVIDERS: Emergency Provider Emergency Medicine; PCP Nurse Practitioner Family; Visit Provider Emergency Medicine
DX: M25.561 Pain in right knee (principal); M23.91 Unspecified internal derangement of right knee; Z98.51 Tubal ligation status; Z86.16 Personal history of COVID-19; Z91.81 History of falling
CPT/HCPCS: 73564; 99283

== ENCOUNTER → 2025-05-04 | Outpatient (CLI) | payer MEDICARE, SELFPAY ==
--- NOTE | 2025-05-04 14:27 | MRI_ITS ---
PROCEDURE: LOWER EXT JOINT ONLY (ROUTINE) 05/04/2025 REASON FOR EXAM: RIGHT KNEE PAIN TECHNIQUE: MRI of the right knee without contrast. Multiplanar and multisequence images were obtained without IV contrast administration. COMPARISON: COMPARISON : Right knee study of 04/29/2025. FINDINGS: Bone Marrow: No acute osseous signal changes are seen. Effusion: No significant right knee joint effusion is seen. A small Manley's cyst is noted, however. A torn root of the posterior horn of the medial meniscus is seen, best noted coronal images 21 and 22. No lateral meniscal tear is noted. Mild degenerative changes of the medial and patellofemoral compartments of the right knee are seen. Mild irregular articular cartilage thinning is seen of the lateral facet patella. In the medial compartment, mild irregular articular cartilage thinning is most apparent at the medial femoral condyle Ligaments and Tendons: Cruciate collateral ligaments appear intact. Visualized extensor tendons appear intact. MRI/Lower Ext Joint Only (Routine) IMPRESSION: 1. Torn root of the posterior horn of the medial meniscus. 2. Small Manley's cyst. 3. Degenerative changes, most apparent at medial compartment. Reading Location: [id number]
== END | disposition home or self-care (01) ==
PROVIDERS: PCP Nurse Practitioner Family; Referring Provider Orthopaedic Surgery; Visit Provider Orthopaedic Surgery
DX: S83.241A Other tear of medial meniscus, current injury, right knee, initial encounter (principal); M23.91 Unspecified internal derangement of right knee
CPT/HCPCS: 73721

== ENCOUNTER → 2025-05-08 | Outpatient (CLI) | payer MEDICARE, SELFPAY ==
--- NOTE | 2025-05-08 16:15 | BD_ITS ---
PROCEDURE: DEXA BONE DENSITY STUDY 05/08/2025 REASON FOR EXAM: F, age 69 y/o . Postmenopausal. TECHNIQUE: DXA scan of sites with data reported below. REFERENCE LINKS: [facility] [place] Position[facility] COMPARISON: Prior study dated January 25, 2014. FINDINGS: BMD and T-SCORES Lumbar spine: 0.798 g/cm2, T-score -2.3 Levels: L1 through L4 Change from prior: Loss of 11.3%. Left femoral neck: 0.678 g/cm2, T-score -1.5 Femoral neck comparison data not recommended for monitoring change. Left total hip: 0.812 g/cm2, T-score -1.1 Change from prior: Loss of 4.9%. Right femoral neck: 0.712 g/cm2, T-score -1.2 Femoral neck comparison data not recommended for monitoring change. Right total hip: 0.836 g/cm2, T-score -0.9 Change from prior: Loss of 5.2%. The World Health Organization has defined the following categories based on bone density: Normal bone density: T-score equal to or greater than -1.0 Osteopenia: T-score between -1.0 and -2.5 Osteoporosis: T-score equal to or less than -2.5 The patient does meet the pharmacological treatment recommendations for prevention of osteoporosis. BD/Dexa Bone Density Study IMPRESSION: OSTEOPENIA. Recommend follow-up as clinically warranted. Reading Location: [place] [id number]
== END | disposition home or self-care (01) ==
LOC: OPBD 16:11
PROVIDERS: PCP Nurse Practitioner Family; Referring Provider Nurse Practitioner Family; Visit Provider Nurse Practitioner Family
DX: Z13.820 Encounter for screening for osteoporosis (principal); Z78.0 Asymptomatic menopausal state
CPT/HCPCS: 77080

== ENCOUNTER 2025-07-10 06:30 | Day surgery (SDC) | payer MEDICARE, SELFPAY ==
[2025-07-10] VITALS (11 sets, daily range): BP systolic 128–154; BP diastolic 72–92; PULSE 80–98; RESP 16–18; TEMP 36.3–36.6; O2SAT 95–100; BMI 33.7
--- OUTSIDE RECORDS SUMMARY | 2025-07-10 06:33 | XMS RPT_ITS | CCD ---
Author Organization [facility] Care Team Providers Care Sports Management Professor Name Role Phone Alyssa Shaikh Primary Care Provider Dr. Chirag Owen Primary Care Provider Dr. Chirag Owen Referring Provider [phone] Chi CARTON FILLING MACHINE OPERATOR, CARTON FILLING MACHINE OPERATOR-C Brittany Attending Provider Chirag Owen MD Primary Care Provider Dr. Chirag Owen MD Primary Care Provider Dr. Alyssa Shaikh MD Attending Provider Dr. Alyssa Shaikh MD Referring Provider Florentin Briceno MD Emergency Provider Fox CARTON FILLING MACHINE OPERATOR-C, Estefania Primary Care Provider Florentin Briceno MD Attending Provider Fox CARTON FILLING MACHINE OPERATOR-C, Estefania Referring Provider Dr. Robbin Mcelroy DO Attending Provider Dr. Robbin Mcelroy DO Referring Provider Fox CARTON FILLING MACHINE OPERATOR-C, Estefania Attending Provider Rehan DILL-Sharri Strickland Attending Provider TYSON PRADO Attending Unavailable ALYSSA SHAIKH Primary Care Unavailable Fox, Estefania Referring Unavailable Fox, Estefania Primary Care Unavailable Sharri Van Attending Unavailable Robbin Mcelroy Referring Unavailable Robbin Mcelroy Attending Unavailable Fox, Estefania Primary Care Unavailable Fox, Estefania Attending Unavailable Fox, Estefania Referring Unavailable Fox, Estefania Primary Care Unavailable Borruso, Rbobin Attending Unavailable Fox, Estefania Primary Care Unavailable Borruso, Robbin Referring Unavailable Borruso, Robbin Attending Unavailable Fox, Estefania Primary Care Unavailable Borruso, Robbin Attending Unavailable Fox, Estefania Referring Unavailable Fox, Estefania Primary Care Unavailable Chi CARTON FILLING MACHINE OPERATOR, Brittany Attending Unavailable [place] CARTON FILLING MACHINE OPERATOR, Brittany Referring Unavailable Owen, Chirag Primary Care Unavailable McMorrow CARTON FILLING MACHINE OPERATOR, Brian Attending Unavailable McMorrow CARTON FILLING MACHINE OPERATOR, Brian Referring Unavailable Owen, Chirag Primary Care Unavailable Jolliff, Alyssa S Attending Unavailable Jolliff, Alyssa S Referring Unavailable Owen, Chirag Primary Care Unavailable Reodica, Florentin Attending Unavailable Fox, Estefania Primary Care Unavailable Owen, Chirag Primary Care Unavailable Chi CARTON FILLING MACHINE OPERATOR, Brittany Attending Unavailable [place] CARTON FILLING MACHINE OPERATOR, Brittany Referring Unavailable Owen, Chirag Primary Care Unavailable Owen, Chirag Referring Unavailable Chi CARTON FILLING MACHINE OPERATOR, Brittany Attending Unavailable [place] CARTON FILLING MACHINE OPERATOR, Brittany Attending Unavailable Chi CARTON FILLING MACHINE OPERATOR, Brittany Referring Unavailable Owen, Chirag Primary Care Unavailable Cherelleso, Robbin Attending Unavailable Fox, Estefania Primary Care Unavailable Fox, Estefania Referring Unavailable Medications Current Medications Medication Drug Class(es) Dates Sig (Normalized) Sig (Original) biotin 5 mg oral tablet (4 sources) Start: 01-29-2014 take 1 tablet by mouth once daily biotin 5 mg tab Take 1 tablet by mouth once daily. 0 01/29/2014 Active Comment on above: Take 1 tablet by kalie th once daily. calcium carbonate 1500 mg / cholecalciferol 800 unt chewable tablet (4 sources) Vitamin D Start: 01-29-2014 take 1 tablet by mouth once daily calcium carbonate-vitamin D3 (CALTRATE 600 + D) 600 mg (1,500 mg)-800 unit chew Take 1 tablet by mouth once daily. 0 01/29/2014 Active Comment on above: Take 1 tablet by kalie th once daily. lysine 500 mg oral tablet (4 sources) Start: 01-29-2014 take 1 tablet by mouth once daily Lysine (L-LYSINE) 500 mg tab Take 1 tablet by mouth once daily. 0 01/29/2014 Active Comment on above: Take 1 tablet by kalie th once daily. multivitamin (DAILY VITAMIN) tablet (4 sources) Start: 01-29-2014 take 1 tablet by mouth once daily multivitamin (DAILY VITAMIN) tablet Take 1 tablet by mouth once daily. 0 01/29/2014 Active Comment on above: Take 1 tablet by kalie th once daily. [place] (Nk) (3 sources) Start: 05-16-2025 [place] (Nk) Active May 16, 2025 12:00am Start: 07-06-2022 [place] (Nk) A ctive July 06, 2022 12:00am polyethylene glycol 3350 060519 mg / potassium chloride 2970 mg / sodium bicarbonate 6740 mg / sodium chloride 5860 mg / sodium sulfate 56879 mg powder for oral solution (4 sources) Osmotic Laxative Start: 02-12-2022 peg 3350-Electrolytes (GOLYTELY) 236-22.74-6.74 -5.86 gram suspension Refer to printed prep instructions from your provider. 4000 mL 02/12/2022 Active Comment on above: Refer to printed pre p instructions from your provider. promethazine hydrochloride 12.5 mg oral tablet (1 source) Phenothiazine Start: 01-28-2022 take 12.5 mg by mouth every six hours Promethazine Active 12.5 MG PO EVERY 6 HOURS January 28, 2022 1:00am Completed/Discontinued Medications Medication Drug Class(es) Dates Sig (Normalized) Sig (Original) Acetaminophen (Tylenol Extra Strength) 500 mg powder in packet (7 sources) Start: 08-10-2023 End: 04-29-2025 take 1000 mg by mouth every six hours as needed Acetaminophen (Tylenol Extra Strength) 500 mg powder in packet Discontinued 1000 mg PO EVERY 6 HOURS as needed August 10, 2023 12:00am April 29, 2025 5:39pm Start: 08-10-2023 take 1000 mg by mout h every six hours Acetaminophen (Tylenol Extra Strength) 500 mg powder in packet Active 1000 MG PO EVERY 6 HOURS August 10, 2023 12:00am cephalexin 500 mg oral capsule (10 sources) Cephalosporin Antibacterial Start: 08-06-2021 End: 08-13-2021 take 1 capsule by mouth every eight hours Cephalexin 500 mg capsule Discontinued 500 mg PO Q8H 21 7 August 06, 2021 12:00am August 12, 2021 12:00am August 13, 2021 12:01am oxyCODONE hydrochloride 5 mg oral tablet (6 sources) Opioid Agonist Start: 04-29-2025 End: 05-09-2025 take 1 tablet by mouth every six hours as needed for pain Oxycodone 5 mg tablet Discontinued 5 mg PO EVERY 6 HOURS as needed for pain 12 April 29, 2025 May 09, 2025 8:00am sulfamethoxazole 800 mg / trimethoprim 160 mg oral tablet (10 sources) Dihydrofolate Reductase Inhibitor Antibacterial, Sulfonamide Antimicrobial Start: 07-17-2021 End: 07-20-2021 Sulfamethoxazole- Trimethoprim (Bactrim Ds) 800-160 mg tablet Discontinued 1 {tbl} PO TWICE A DAY 6 July 17, 2021 12:00am July 19, 2021 12:00am July 20, 2021 12:01am Problems Active Problems Problem Classification Problem Date Documented Da te Episodic/Chronic Inflammatory diseases of female pelvic organs (1 source) Acute vaginitis; Translations: [Vaginitis and vulvovaginitis, unspecified] 03-09-2024 Episodic Joint disorders and dislocations; trauma-related (6 sources) Derangement of right knee; Translations: [Unspecified internal derangement of right knee] 04-29-2025 Chronic Joint disorders and dislocations; trauma-related (13 sources) Acute meniscal tear, medial; Translations: [Other tear of medial meniscus, current injury, right knee, initial encounter] Onset: 05-16-2025 05-02-2025 Episodic Menopausal disorders (8 sources) Atrophic vaginitis; Translations: [Postmenopausal atrophic vaginitis] 03-09-2024 Chronic Comment on above: coconut oil Osteoarthritis (3 sources) Osteoarthritis of right knee joint; Translations: [Unilateral primary osteoarthritis, right knee] Onset: 05-16-2025 05-16-2025 Chronic Other connective tissue disease (6 sources) Pain in thumb ; Translations: [Pain in left finger(s)] 05-29-2024 Episodic Other gastrointestinal disorders (10 sources) Constipation; Translations: [Constipation, unspecified] 04-14-2021 Episodic Other non-traumatic joint disorders (7 sources) Pain in left shoulder; Translations: [Left shoulder pain] 08-10-2023 Episodic Other non-traumatic joint disorders (7 sources) Pain in right knee; Translations: [Right knee pain] Onset: 05-06-2025 04-29-2025 Episodic Other nutritional; endocrine; and metabolic disorders (4 sources) Metabolic syndrome X; Translations: [Metabolic syndrome] Onset: 12-11-2009 12-11-2009 Chronic Other nutritional; endocrine; and metabolic disorders (10 sources) Obesity; Translations: [Obesity, unspecified] 07-06-2022 Chronic Other screening for suspected conditions (not mental disorders or infectious disease) (1 source) Encounter for screening for osteoporosis; Translations: [Encounter for screening for osteoporosis] Onset: 05-15-2025 Episodic Sprains and strains (9 sources) Sprain of knee; Translations: [Sprain of unspecified site of left knee, initial encounter] 07-14-2022 Episodic Viral infection (10 sources) Disease caused by 2019-nCoV; Translations: [COVID-19] 03-09-2024 Episodic Past or Other Problems Problem Classification Problem Date Documented Da te Episodic/Chronic Abdominal pain (10 sources) Left lower quadrant pain; Translations: [Left lower quadrant pain] Onset: 09-07-2024 Episodic Comment on above: [place] Residual codes; unclassified (1 source) Other general symptoms and signs; Translations: [Other general symptoms and signs] Onset: 11-17-2024 Episodic Results Test Name Value Interpretation Reference Range Facility Orthopedic Visit Reporton Orthopedic Visit Report [facility] [address] [place] [address] OFFICE VISIT Date of Service: 05/16/25 MR#: [id number] Acct: [id number] Name: SARANYA PITT Rep #: [id number] : 1955 Provider: Dr. Robbin donovan DO Age/Sex: 69/F Location: [facility] [place] Status: Signed Intake Vital Signs 05/09/25 07:54 Height 5 ft 4 in Weight: 185 lb BMI 31.7 Intake Visit Reasons: right knee Chief Complaint: Discuss Surgery Accompanied by: Is patient in pain?: Yes Pain scale (1-10): 3 Allergies No Known Allergies Allergy (Verified 05/16/25 08:00) Medications ???Medication ???Instructions ???Recorded ???Confirmed ???Type etodolac 500 mg tablet 500 mg PO BID #40 tabs 05/16/25 Rx Have you fallen in the past year?: Yes PFSH Medical History Pain of left thumb History of meniscal tear Left shoulder pain COVID-19 Surgical History S/P tubal ligation Family History Father Diabetes Prostate cancer Mother Osteoarthritis Sister Autoimmune disease Brother CAD (coronary artery disease) Retinal toxoplasmosis Social History Smoking Status: Never smoker alcohol intake: current alcohol intake frequency: holidays/special occasions only substance use type: does not use caffeine: Yes what type of physical activity do you participate in: none seatbelt use: always do you feel safe at home: Yes additional social history: HPI right knee Details: This documentation accurately reflects the service provided and the decisions made by me, Dr. Robbin Mcelroy, DO 05/16/25 0733. Part of today???s visit was documented by Marianne Cuellar ATC, acting as scribe. SARANYA PITT is a 69 year old F here today for right knee pain. Patient is here to discuss surgery for the knee. She rates the knee pain a 3/10 today. She states that it is stiff in the morning then loosens up and does pretty well and by the end of the day has more pain if she overdoes it. She does get some painful occasional catching. She has fallen a couple times she hurt the knee. She is able to fully bend and straighten her knee now 05/02/2025 office visit: here today for ER follow-up 04/29/2025. According to record she had a fall a few days prior to ER visit and she was able to ambulate however her on 04/29/25 her pain began to increased she did not have any fevers or chills or redness but she had difficulty with ambulating. She did have x-rays which were unremarkable in the emergency room and she was given oxycodone and a knee immobilizer and a walker. Patient states the knee had been hurting for a couple weeks and she thinks her knee gave out on her and she fell on the concrete on Wednesday04/27/2025. She was limping after the fall but doing okay. On Wednesday she went to [place] and tried to go to a car show and get into a truck and she felt and a heard a crack in the knee but unsure where exactly she felt it. This caused a dramatic increase in her pain. she describes the pain over the anterior and posterior knee and describes it as a constant ache. She continues to wear the immobilizer and states it reminds her not to bend the knee. She does take it off at night to sleep. Patient is taking the oxycodone that was given at the ER and she takes it at night and it does help her sleep. She denies any prior injury, injections, physical therapy or prior sugery. Plan:Patient is had pain preceding a very low traumatic stepping into her truck where she felt a painful pop. Reviewed x-rays that were done in the ER prior. Upon evaluation there is a possibility that she tore her medial meniscus and with the block in her motion would like to get an MRI. If there is a medial meniscal tear of the knee we might need to arthroscopically remove some meniscal tissue. If she feels like she needs the immobilizer for extra support during ambulation she may continue to use that as well as the walker. However she can remove it when she is not ambulating and try to get the knee moving. Follow up after MRI is completed to go over results or sooner if pain, swelling, numbness or associated symptoms, or concerns develop. All questions answered. Patient in agreement of plan. Ortho Exam General General: Yes no acute distress and Yes well groomed Neurologic: Yes alert and Yes oriented x3 Psychologic: Yes reasonable and appropriate Right Knee Skin/Wound: Yes CDI, No erythema, No ecchymosis and No swelling Knee ROM: Yes ROM-Extension -20 to 0 and No ROM-Flexion 0-140 (120) Examination: Yes Med jt line tenderness Stability: NML: (more content not included)... Normal [facility] Bone density reportOrdered B y: Bc Iban on 05-09-2025 Study report Skeletal system DXA [facility] Imaging Services [address] [place] [address] Dexa Bone Density Study MR#: [id number] Acct: [id number] Name: SARANYA PITT Rep #: [id number] : 1955 F 69 From: Chris Ferrera MD PCP: AMRITA Montemayor Status: REG CLI Study:Dexa Bone Density Study Date of Exam: 05/08/25 Exam# [id number] Ordering Dr: Ra sanaz Braxton PROCEDURE: DEXA BONE DENSITY STUDY 05/08/2025 REASON FOR EXAM: F, age 69 y/o . Postmenopausal. TECHNIQUE: DXA scan of sites with data reported below. REFERENCE LINKS: [facility] Adult Positions COMPARISON: Prior study dated January 25, 2014. FINDINGS: BMD and T-SCORES Lumbar spine: 0.798 g/cm2, T-score -2.3 Levels: L1 through L4 Change from prior: Loss of 11.3%. Left femoral neck: 0.678 g/cm2, T-score -1.5 Femoral neck comparison data not recommended for monitoring change. Left total hip: 0.812 g/cm2, T-score -1.1 Change from prior: Loss of 4.9%. Right femoral neck: 0.712 g/cm2, T-score -1.2 Femoral neck comparison data not recommended for monitoring change. Right total hip: 0.836 g/cm2, T-score -0.9 Change from prior: Loss of 5.2%. The World Health Organization has defined the following categories based on bonedensity: Normal bone density: T-score equal to or greater than -1.0 Osteopenia: T-score between -1.0 and -2.5 Osteoporosis: T-score equal to or less than -2.5 The patient does meet the pharmacological treatment recommendations for prevention of osteoporosis. BD/Dexa Bone Density Study IMPRESSION: OSTEOPENIA. Recommend follow-up as clinically warranted. Reading Location: [place] [address] CC: AMRITA Braxton ~ Cadd Instructor: Signed [facility] Orthopedic Visit Reporton Orthopedic Visit Report [facility] [facility] [address] [place] [address] OFFICE VISIT Date of Service: 05/09/25 MR#: [id number] Acct: [id number] Name: SARANYA PITT Rep #: [id number] : 1955 Provider: AMRITA mendez Age/Sex: 69/F Location[place] [facility] Status: Signed Intake Vital Signs 04/29/25 17:14 05/09/25 07:54 Height 5 ft 4 in 5 ft 4 in Weight: 185 lb BMI 31.7 Intake Visit Reasons: RIGHT KNEE Chief Complaint: Right knee MRI review Accompanied by: Self Is patient in pain?: Yes Pain scale (1-10): 3 Allergies No Known Allergies Allergy (Verified 05/09/25 08:00) Have you fallen in the past year?: Yes PFSH Medical History Pain of left thumb History of meniscal tear Left shoulder pain COVID-19 Surgical History S/P tubal ligation Family History Father Diabetes Prostate cancer Mother Osteoarthritis Sister Autoimmune disease Brother CAD (coronary artery disease) Retinal toxoplasmosis Social History Smoking Status: Never smoker alcohol intake: current alcohol intake frequency: holidays/special occasions only substance use type: does not use caffeine: Yes what type of physical activity do you participate in: none seatbelt use: always do you feel safe at home: Yes additional social history: HPI RIGHT KNEE Details: This documentation accurately reflects the service provided and the decisions made by , AMRITA Perez 05/09/25 0754. Part of today???s visit was documented by Joey Valles MA, acting as scribe. SARANYA PITT is a 69 year old F here today for right knee MRI review. Patient would like to go over the MRI results to discuss what the next step would be. She denies any recent injections or physical therapy. Saranya is a pleasant 69-year-old woman presenting today for MRI review. . Patient states the knee had been hurting for several weeks and she thinks her knee gave out on her and she fell on the concrete on Wednesday04/27/2025. Patient was seen in the ED on 04/29/2025 for increased pain and difficulty with ambulation. She was provided a knee immobilizer and a walker. She is no longer wearing the knee immobilizer, uses walker on as needed basis. She is still experiencing sensations and episodes of give way, no further falls. Positive popping and cracking sensation mainly to the right knee, on occasion to the left knee. History of meniscal surgery on the left knee for tear with total resolution of symptoms. Overall improvement approximately 60% since date of injury. ROS Const All systems reviewed are unremarkable except as noted in H and other (A O x 3, no apparent distress. No recent illness.) ENT Denies dizziness Card Denies chest pain, Denies dyspnea, Denies edema and Reports other (No palpitations) Resp Denies cough, Denies dyspnea and Reports other (No recent URI) GI Reports system reviewed and no additional complaints, except as documented, Denies nausea and Denies vomiting Musc Reports as per HPI, Reports abnormal gait and Reports arthralgias Neuro Yes abnormal gait and No dizziness Psych Reports system reviewed and no additional complaints, except as documented Barney/Lymph Denies easy bleeding and Denies easy bruising Ortho Exam General General: Yes no acute distress and Yes well groomed Neurologic: Yes alert and Yes oriented x3 Psychologic: Yes reasonable and appropriate Right Knee Skin/Wound: No erythema, No ecchymosis and Yes swelling Stability: NML: Anterior Drawer, NML: Posterior Drawer, NML: Valgus 0, NML: Valgus 30, NML: Varus 0 and NML: Varus 30 KNEE: Skin is pink, warm, dry and intact. There is mild to moderate medial posterior swelling present, small palpable swelling over the popliteal fossa Range of motion: 0 to 120 degrees Palpation: Tenderness over the medial joint line greater than lateral joint line, MCL and popliteal fossa. Lower leg is soft, nontender, easily compressible, Homans negative Gait: Moderate sided limp Full range of distal joints with no symptom aggravation Distal motor or sensory intact with brisk cap refill at 2 seconds Supplemental Info We reviewed MRI results during today's visit. Patient with posterior root medial meniscal tear, small Manley's cyst is present and mild degenerative changes of the medial and patellofemoral compartments, irregular articular cartilage thinning of the lateral facet patella and medial femoral condyle. Coding Level of Care Code Off vis,est,level 3 Diagnoses Acute medial meniscus tear of right knee, i (more content not included)... Normal [facility] Dexa Bone Density Studyon Dexa Bone Density Study [facility] Imaging Services [address] [place] [address] Dexa Bone Density Study MR#: [id number] Acct: [id number] Name: SARANYA PITT Rep #: [id number] : 1955 F 69 From: cB thakur MD PCP: AMRITA Montemayor Status: REG CLI Study: Dexa Bone Density Study Date of Exam: 05/08/25 Exam# [id number] Ordering Dr: Estefania Braxton PROCEDURE: DEXA BONE DENSITY STUDY 05/08/2025 REASON FOR EXAM: F, age 69 y/o . Postmenopausal. TECHNIQUE: DXA scan of sites with data reported below. [facility] Adult Positions COMPARISON: Prior study dated January 25, 2014. FINDINGS: BMD and T-SCORES Lumbar spine: 0.798 g/cm2, T-score -2.3 Levels: L1 through L4 Change from prior: Loss of 11.3%. Left femoral neck: 0.678 g/cm2, T-score -1.5 Femoral neck comparison data not recommended for monitoring change. Left total hip: 0.812 g/cm2, T-score -1.1 Change from prior: Loss of 4.9%. Right femoral neck: 0.712 g/cm2, T-score -1.2 Femoral neck comparison data not recommended for monitoring change. Right total hip: 0.836 g/cm2, T-score -0.9 Change from prior: Loss of 5.2%. The World Health Organization has defined the following categories based on bone density: Normal bone density: T-score equal to or greater than -1.0 Osteopenia: T-score between -1.0 and -2.5 Osteoporosis: T-score equal to or less than -2.5 The patient does meet the pharmacological treatment recommendations for prevention of osteoporosis. BD/Dexa Bone Density Study IMPRESSION: OSTEOPENIA. Recommend follow-up as clinically warranted. Reading Location: [place] [address] CC: AMRITA Braxton Cadd Instructor: Signed Normal [facility] Lower Ext Joint Only (Routin e)on 05-04-2025 Lower Ext Joint Only (Routine) [facility] Imaging Services [address] [place] [address] Lower Ext Joint Only (Routine) MR#: [id number] Acct: [id number] Name: SARANYA PITT Rep #: [id number] : 1955 F 69 From: Kannan Montoya PCP: AMRITA Montemayor Status: REG CLI Study: Lower Ext Joint Only (Routine) Date of Exam: 0 05/04/25 Exam# [id number] Ordering Dr: Robbin Mcelroy DO PROCEDURE: LOWER EXT JOINT ONLY (ROUTINE) 05/04/2025 REASON FOR EXAM: RIGHT KNEE PAIN TECHNIQUE: MRI of the right knee without contrast. Multiplanar and multisequence images were obtained without IV contrast administration. COMPARISON: COMPARISON : Right knee study of 04/29/2025. FINDINGS: Bone Marrow: No acute osseous signal changes are seen. Effusion: No significant right knee joint effusion is seen. A small Manley's cyst is noted, however. A torn root of the posterior horn of the medial meniscus is seen, best noted coronal images 21 and 22. No lateral meniscal tear is noted. Mild degenerative changes of the medial and patellofemoral compartments of the right knee are seen. Mild irregular articular cartilage thinning is seen of the lateral facet patella. In the medial compartment, mild irregular articular cartilage thinning is most apparent at the medial femoral condyle Ligaments and Tendons: Cruciate collateral ligaments appear intact. Visualized extensor tendons appear intact. MRI/Lower Ext Joint Only (Routine) IMPRESSION: 1. Torn root of the posterior horn of the medial meniscus. 2. Small Manley's cyst. 3. Degenerative changes, most apparent at medial compartment. Reading Location: [address] CC: CARTON FILLING MACHINE OPERATOR-C Estefania Braxton; Dr. Robbin Mcelroy DO Cadd Instructor: Signed Normal [facility] Magnetic resonance imaging r eportOrdered By: Kannan Barry on 05-04-2025 Study report [facility] Imaging Services [address] [place] [address] Lower Ext Joint Only (Routine) MR#: [id number] Acct: [id number] Name: SARANYA PITT Rep #: [id number] : 1955 F 69 From: Gautam Barry MD PCP: LESLIE MontemayorC Status: REG CLI Study:Lower Ext Joint Only (Routine) Date of Exam: 05/04/25 Exam# [id number] Ordering Dr: Robbin Mcelroy DO PROCEDURE: LOWER EXT JOINT ONLY (ROUTINE) 05/04/2025 REASON FOR EXAM: RIGHT KNEE PAIN TECHNIQUE: MRI of the right knee without contrast. Multiplanar and multisequence images were obtained without IV contrast administration. COMPARISON: COMPARISON : Right knee study of 04/29/2025. FINDINGS: Bone Marrow: No acute osseous signal changes are seen. Effusion: No significant right knee joint effusion is seen. A small Manley's cyst is noted, however. A torn root of the posterior horn of the medial meniscus is seen, best noted coronal images 21 and 22. No lateral meniscal tear is noted. Mild degenerative changes of the medial and patellofemoral compartments of the right knee are seen. Mild irregular articular cartilage thinning is seen of the lateral facet patella. In the medial compartment, mild irregular articular cartilage thinning is most apparent at the medial femoral condyle Ligaments and Tendons: Cruciate collateral ligaments appear intact. Visualized extensor tendons appear intact. MRI/Lower Ext Joint Only (Routine) IMPRESSION: 1. Torn root of the posterior horn of the medial meniscus. 2. Small Manley's cyst. 3. Degenerative changes, most apparent at medial compartment. Reading Location: [id number] CC: AMRITA Braxton; Dr. Robbin Mcelroy DO ~ Cadd Instructor: Signed [facility] Orthopedic Visit Reporton Orthopedic Visit Report [facility] [address] [place] [address] [place] [address] OFFICE VISIT Date of Service: 05/02/25 MR#: [id number] Acct: [id number] Name: SARANYA PITT Rep #: [id number] : 1955 Provider: Dr. Robbin donovan DO Age/Sex: 69/F Location[place] [facility] Status: Signed Intake Vital Signs 04/29/25 17:14 Height 5 ft 4 in Intake Visit Reasons: RIGHT LEG Chief Complaint: Right Knee - ER Follow-Up Accompanied by: Is patient in pain?: Yes Pain scale (1-10): 4 Allergies No Known Allergies Allergy (Verified 05/02/25 10:09) Medications ???Medication ???Instructions ???Recorded ???Confirmed ???Type oxycodone 5 mg tablet 5 mg PO Q6H PRN pain 3 days #12 05/02/25 Rx tabs Have you fallen in the past year?: Yes PFSH Medical History Pain of left thumb History of meniscal tear Left shoulder pain COVID-19 Surgical History S/P tubal ligation Family History Father Diabetes Prostate cancer Mother Osteoarthritis Sister Autoimmune disease Brother CAD (coronary artery disease) Retinal toxoplasmosis Social History Smoking Status: Never smoker alcohol intake: current alcohol intake frequency: holidays/special occasions only substance use type: does not use caffeine: Yes what type of physical activity do you participate in: none seatbelt use: always do you feel safe at home: Yes additional social history: HPI RIGHT LEG Details: This documentation accurately reflects the service provided and the decisions made by me, Dr. Robbin Mcelroy, DO 05/02/25 0748. Part of today???s visit was documented by Marianne Cuellar ATC, acting as scribe. SARANYA PITT is a 69 year old F here today for ER follow-up 04/29/2025. According to record she had a fall a few days prior to ER visit and she was able to ambulate however her on 04/29/25 her pain began to increased she did not have any fevers or chills or redness but she had difficulty with ambulating. She did have x-rays which were unremarkable in the emergency room and she was given oxycodone and a knee immobilizer and a walker. Patient states the knee had been hurting for a couple weeks and she thinks her knee gave out on her and she fell on the concrete on Wednesday04/27/2025. She was limping after the fall but doing okay. On Wednesday she went to [place] and tried to go to a car show and get into a truck and she felt and a heard a crack in the knee but unsure where exactly she felt it. This caused a dramatic increase in her pain. she describes the pain over the anterior and posterior knee and describes it as a constant ache. She continues to wear the immobilizer and states it reminds her not to bend the knee. She does take it off at night to sleep. Patient is taking the oxycodone that was given at the ER and she takes it at night and it does help her sleep. She denies any prior injury, injections, physical therapy or prior sugery. Ortho Exam General General: Yes no acute distress and Yes well groomed Neurologic: Yes alert and Yes oriented x3 Psychologic: Yes reasonable and appropriate Right Knee Skin/Wound: Yes CDI, No erythema, No ecchymosis and Yes swelling Knee ROM: Yes ROM-Extension -20 to 0 and Yes ROM-Flexion 0-140 (20) Stability: NML: Anterior Drawer, NML: Posterior Drawer, NML: Valgus 0, NML: Valgus 30, NML: Varus 0 and NML: Varus 30 Patella Translation: 1 KNEE: faint joint effusion soft tissue swelling + tenderness hamstrings full EXT very painful to try to bend the knee I believe pain is limiting her flexion plus she has been in the immobilizer but cannot rule out a true block because she is fighting because of the pain. 20 FLEX - collateral instability - anterior drawer - posterior drawer + tenderness medial joint line + tenderness pes - tenderness lateral joint line Left Knee Patella Translation: 1 Supplemental Info 04/29/2025 x-ray right knee: Relatively preserved joint spaces, mild spurring of the lateral patellar facet there is a superior patellar enthesophyteno joint effusion or soft tissue swelling mild osteoarthritis Coding Level of Care Code Off vis,new,level 3 Diagnoses Acute medial meniscus tear of right knee, initial encounter S83.241A Encounter type: initial encounter Assessment and Plan Assessment and Plan (1) Acute medial meniscus tear of right knee: Status: Acute Qualifiers: Encounter type: initial encounter Qualified Code(s): S83.241A - Other tear of medial meniscus, current injury, right knee, initial encounter Orders: Orders Lower Ext Joint Only (Routine) Today M (more content not included)... Normal [facility] Emergency Department Summary on 04-29-2025 Emergency Department Summary [facility] Medical Records Department [address] [place] [address] Emergency Department Summary 04/29/25 MR#: [id number] Acct: [id number] Name: SARANYA PITT Rep #: [id number] : 1955 69 From: Florentin Briceno MD PCP: AMRITA Montemayor Status:REG ER Location: ED HPI History of Present Illness Chief Complaint: Lower Extremity Injury Narrative Narrative: 69-year-old female presents with right knee pain that has increased today. She and her partner relate history that she had a fall a few days ago onto her right knee. She had been able to ambulat e. Today, she states that her knee pain has increased significantly. She denies any fevers or chills, no redness to the area. The pain is extreme in her knee that she is only able to crawl and is unable to bear weight on it. She is having problems extending it as well. She denies that when she fell she had any hitting of her head or loss of consciousness. [facility] Medical History Pain of left thumb History of meniscal tear Left shoulder pain COVID-19 Home Medications ???Medication ???Instructions ???Recorded ???Last Taken ???Type oxycodone 5 mg tablet 5 mg PO Q6H PRN pain 3 days #12 Unknown Rx tabs Allergy/AdvReac Type Severity Reaction Status Date / Time No Known Allergies Allergy Verified 04/29/25 17:14 Family History Father Diabetes Prostate cancer Mother Osteoarthritis Sister Autoimmune disease Brother CAD (coronary artery disease) Retinal toxoplasmosis Surgical History S/P tubal ligation Social History Smoking Status: Never smoker alcohol intake: current alcohol intake frequency: holidays/special occasions only substance use type: does not use caffeine: Yes what type of physical activity do you participate in: none seatbelt use: always do you feel safe at home: Yes additional social history: ROS ROS ED ROS Narrative Review of systems positive for right knee pain. No fevers or chills, no nausea or vomiting. Pain worse with movement and weightbearing. Unable to walk. EXAM Physical Exam Narrative Exam Narrative: GCS 15. ABCs intact. Cardiovascular examination regular rate and rhythm. Lungs clear to auscultation bilaterally. Abdomen soft nontender. Neurological examination nonfocal and nonlateralizing. Patient is holding her knee in flexion on the right. She appears neurovascularly intact distally with a dorsalis pedis pulse that is palpable. She has mild tenderness in the right posterior medial biceps for Deven tendon, no crepitance. She also has pain along the lateral collateral ligament and in the medial meniscal line. Const Vital Signs: 04/29/25 17:14 Temperature 98.1 F Temperature Source Oral Pulse Rate 83 Respiratory Rate 16 Blood Pressure 155/83 H Blood Pressure Mean 107 Pulse Ox 98 Oxygen Delivery Method Room Air MDM MDM MDM Narrative Medical decision making narrative: Differential diagnosis includes but not limited to knee contusion versus medial meniscus cartilage tear versus medial collateral ligament tear versus biceps for Deven strain/sprain. I have low suspicion for DVT or arthritis as the history and physical does not support this. I do not feel that she requires any laboratory work or arthrocentesis. She was administered oxycodone and x-rays were obtained of the right knee and 4 views. They were interpreted by myself independently. I see no evidence of an acute fracture or effusion. I reviewed the radiology report which comments on the superior patellar enthesophyte which is not attached to the patella and could be fractured. It is of indeterminate chronicity favored remote given no significant joint effusion or soft tissue swelling. On direct correlation, she is not having tenderness in that area. At this point in time, there is mild arthritis noted on x-ray as well. I feel she can be discharged to follow-up with orthopedics. She probably has more of an internal derangement of her knee. She will be placed in a knee immobilizer and given a walker to help with ambulation. She can be touchdown weightbearing. Additionally, I discussed with her the possibility of observation given her inability to ambulate freely, but she declined. She was written for a walker, and 12 oxycodone 5 mg tablets to help with analgesia. She will follow-up with orthopedics as an outpatient. Return instructions to the emergency department were reviewed. Disposition is discharge, home in stable condition. History Record Review Discussion w/independent historian: Patient Radiography X-Ray: Read by ED Physician, (more content not included)... Normal [facility] Knee 4 or More Viewson 04-29 Knee 4 or More Views [facility] Imaging Services [address] [place] [address] Knee 4 or More Views MR#: [id number] Acct: [id number] Name: SARANYA PITT Rep #: [id number] : 1955 F 69 From: Almas Sánchez MD PCP: AMRITA Montemayor Status: REG ER Study: Knee 4 or More Views Date of Exam: 04/29/25 Exam# [id number] Ordering Dr: Florentin Briceno MD PROCEDURE: KNEE 4 OR MORE VIEWS 04/29/2025 REASON FOR EXAM: TRAUMA, PAIN TECHNIQUE: 4 view(s) of the right knee COMPARISON: None FINDINGS: There is a tiny osseous fragment just superior to the patella. Mild joint space narrowing in the medial and patellofemoral compartments. No significant joint effusion. The soft tissues are unremarkable. RAD/Knee 4 or More Views IMPRESSION: 1. Superior patellar enthesophyte which is not attached to the patella, and could be fractured. This finding is of indeterminate chronicity, favored remote given no significant joint effusion or soft tissue swelling. Correlate for tenderness to palpation. 2. Mild osteoarthritis. Reading Location: [facility] CC: AMRITA Braxton; Dr. Florentin Briceno MD Cadd Instructor: Signed [facility] 04-03-2025 CNPN Telephone (Cinepapaya) SARANYA PITT ([id number]) 1955 F Date Time Provider Department 04/03/25 TYSON PRADO [facility] During your visit today, we recorded the following information about you: Ayesha Smith RN 04/03/2025 4:49 PM Signed Images requested from [facility] and [facility] [phone] Allergies As of Date: 04/03/2025 (No Known Allergies) Date Reviewed: 03/21/2025 Reviewed by: Ayesha Smith, TREY - Fully Assessed Prescriptions as of 05/08/2025 - peg 3350-Electrolytes (GOLYTELY) 236-22.74-6.74 -5.86 gram suspension Refer to printed prep instructions from your provider. - multivitamin (DAILY VITAMIN) tablet Take 1 tablet by mouth once daily. - Lysine (L-LYSINE) 500 mg tab Take 1 tablet by mouth once daily. - calcium carbonate-vitamin D3 (CALTRATE 600 + D) 600 mg (1,500 mg)-800 unit chew Take 1 tablet by mouth once daily. - biotin 5 mg tab Take 1 tablet by mouth once daily. Problem List As Of Date 04/03/2025 Noted Resolved Dysmetabolic Syndrome X [E88.810] 12/11/2009 Encounter Status:Closed by AYESHA SMITH on 04/03/25 [facility] CNOVon 03-21-2025 CNOV Office Visit (GENSWS) SARANYA PITT ([id number]) 1955 F Date Time Provider Department 03/21/25 11:45 AM TYSON PRADO During your visit today, we recorded the following information about you: Temperature Pulse Blood pressure Weight 97.8 degrees 92/minute 122/82 87.8 kg Height 1.626 m Tyson Prado MD 03/22/2025 5:49 AM Signed FOLLOW UP VISIT NAME: Saranya Logan [facility] NO.: [id number] DATE OF SERVICE: 03/21/2025 : 1955 REFERRING PHYSICIAN: Chirag Owen MD Saranya is a patient I am following for episodic left lower quadrant pain. Saranya is a 69-year-old female presenting with lower abdominal pain and concerns about a pancreatic cyst. Saranya reports intermittent lower abdominal pain near the groin, which she initially feared was related to her colon. The pain episodes occur sporadically, lasting approximately 30 minutes each time, and are described as dull. She notes that the pain was more severe previously but has since lessened in intensity. She denies any changes in bowel habits or hematochezia. She also denies any noticeable bulges in the groin area or obvious hernias. Due to the pain, she consulted a party plan dealer who ordered two pelvic ultrasounds. The first ultrasound revealed a cyst on her ovary, and a follow-up ultrasound a couple of months later showed no change in the cyst's size. She is postmenopausal and has not had periods for a long time. Recently, she was treated for a sinus infection by Dr. Owen, who reviewed a CT scan performed on 01/03/2024. The CT scan reportedly showed no inflammatory changes in the bowel loops, but Dr. Owen mentioned a finding in the pancreas, which led to her referral for further evaluation. She expresses concern about the possibility of parasitic cysts, although she acknowledges that these are rare in the [place]. Additionally, she had a finger x-ray in September due to thumb pain, which showed arthritis and osteopenia. She was prescribed a cream for arthritis management. I had last seen Taisha in 2021 at that time and noted: The patient is a 66 year old female referred for endoscopy. Saranya notes left lower quadrant pain that started approximately 6 months previously. She notes the pain is about a 3 out of 10 and is intermittent. She notes that its worse when she lays on her left side. She notes no issues that really improve the pain. She states she has a history of chronic constipation. She takes Benefiber to improve those issues. She notes occasional bright blood per rectum secondary to straining with her constipation. She notes a history of hemorrhoidal irritation in the past. She denies melena. She denies nausea, vomiting or diarrhea. The patient notes no history of upper GI complaints. Saranya has undergone prior endoscopy. When colonoscopy in 2013 for which a hyperplastic polyp was found in the rectosigmoid area. I performed lower endoscopy on April 21, 2022. The patient was found to have: Impression: - The entire examined colon is normal on direct and retroflexion views. - No specimens collected. The patient notes resolution of her left lower quadrant complaints since the procedure. VITALS: Blood pressure 122/82, pulse 92, temperature 36.6 ?C (97.8 ?F), height 162.6 cm (5' 4), weight 87.8 kg (193 lb 9.6 oz), SpO2 96%. On examination, respiratory dam was clear to auscultation. Cardiac exam is regular rhythm, abdominal exam is soft, no tenderness except to some mild deep palpation in the left lower quadrant, no palpable hernias, Assessment IMPRESSION: Left lower quadrant pain, concern about abnormal finding on CT scan 1. Cyst of left ovary (N83.202) Stable 1.9 cm cyst on the left ovary, confirmed by two pelvic ultrasounds on 07/19 and 08/16. No significant changes noted. Continue monitoring. No immediate intervention required. 2. Left lower quadrant pain (R10.32) Intermittent dull pain lasting approximately 30 minutes, located near the groin. No changes in bowel habits or hematochezia. Recent CT scan on 01/03 showed no inflammatory changes in the bowel loops, normal liver, decompressed gallbladder, and a tiny low attenuating lesion within the pancreatic tail too small to characterize. No hernias detected on physical examination. - Reviewed CT scan findings; pancreatic cyst is common and typically benign. - Will review imaging studies further; if necessary, consider ordering a specific pancreatic CT scan with and without IV contrast or an MRI. - Patient educated on the rarity of parasitic cysts in the [place] [facility] and reassured about the benign nature of the findings. Diagnoses: (R10.32) Left lower quadrant pain (primary encounter diagnosis) (N83.202) Cyst of left ovary Return to Clinic: The patient is instructed to follow-up with me as needed. Rich (more content not included)... Normal [facility] Abdomen/Pelvis WITH Contrast on 01-03-2025 Abdomen/Pelvis WITH Contrast [facility] Imaging Services [address] [place] [id number] Abdomen/Pelvis WITH Contrast MR#: [id number] Acct: [id number] Name: SARANYA PITT Rep #: [id number] : 1955 F 69 From: Ara Rogel DO PCP: Dr. Chirag Owen MD Status: [facility] Study: Abdomen/Pelvis WITH Contrast Date of Exam: 04/22 Exam# [id number] Ordering Dr: Alyssa Shaikh MD PROCEDURE: ABDOMEN/PELVIS WITH CONTRAST REASON FOR EXAM: Left lower quadrant abdominal pain TECHNIQUE: Abdomen and pelvis CT with intravenous contrast. Oral contrast was also used. IV CONTRAST: COMPARISON: None. FINDINGS: Lung bases: Clear Liver: Unremarkable. Gallbladder: Decompressed gallbladder. Spleen: Unremarkable. Pancreas: Tiny low attenuating lesion within the pancreatic tail, too small to characterize. Adrenals: Unremarkable. Kidneys: Unremarkable. Bladder: Unremarkable. Reproductive Organs: Unremarkable. Bowel: Oral contrast reaches the distal small bowel. The stomach appears grossly unremarkable. No inflammatory changes of the small large bowel. Mild stool burden within the right colon. Appendix: The appendix is not identified. There is no inflammatory process identified in the right lower quadrant to suggest appendicitis. Lymph nodes: No suspicious lymph node enlargement. Vasculature: Mild diffuse atherosclerotic calcifications are noted. Peritoneum / Retroperitoneum: No ascites. No free air. Bones: Unremarkable. CT/Abdomen/Pelvis WITH Contrast IMPRESSION: No inflammatory changes of the bowel loops are demonstrated. One or more dose reduction techniques were used (e.g., Automated exposure control, adjustment of the mA and/or kV according to patient size, use of iterative reconstruction technique). Reading Location: [id number] CC: Dr. Alyssa Shaikh MD; Dr. Chirag Owen MD Cadd Instructor: Signed Normal [facility] Finger(s) Min 2 Viewson - Finger(s) Min 2 Views [facility] Imaging Services [address] [place] [address] [id number] Finger(s) Min 2 Views MR#: [id number] Acct: [id number] Name: SARANYA PITT Rep #: [id number] : 1955 F 69 From: Jeet Peace MD PCP: Dr. Chirag Owen MD Status: REG [facility] Study: Finger(s) Min 2 Views Date of Exam: 10/19/24 Exam# [id number] Ordering Dr: Brian Jackson NP [employer] FILLING MACHINE OPERATOR -C [id number] STUDY: X-RAY - LEFT HAND, ATTENTION FIRST FINGER REASON FOR EXAM: Female, 69 years old. Left thumb pain TECHNIQUE: 3 view(s) of the finger were obtained. COMPARISON: None. FINDINGS: Osteopenia. Moderate arthrosis of the radial carpal row of the wrist with subchondral cyst formation in the trapezium. Moderate to severe arthrosis of the first CMC joint with osteophytes and sclerosis. Small ossicles/intra-artic ular osteochondral bodies of the first CMC joint. Moderate arthrosis of the first MCP and IP joints. Normal soft tissues. 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 No other abnormality. Electronically Signed: Jeet Peace MD at 10:50 EST Reading Location ID and State: [address] [place] [address] , Service support , CC: Brian DILL [employer]ARTON FILLING MACHINE OPERATOR-C McMorrow; Dr. Chirag Owen MD Cadd Instructor: Signed Normal [facility] Pelvic w/ Transvaginalon Pelvic w/ Transvaginal [facility] Imaging Services [address] [place] [address] [id number] Pelvic w/ Transvaginal MR#: [id number] Acct: [id number] Name: SARANYA PITT Rep #: [id number] : 1955 F 69 From: Gopi palmer MD PCP: Dr. Chirag Owen MD Status: [facility] Study: Pelvic w/ Transvaginal Date of Exam: 08/16/24 Exam# [id number] Ordering Dr: Brittany Mireles NP [employer] FILLING MACHINE OPERATOR -C [id number] STUDY: ULTRASOUND OF THE FEMALE PELVIS - COMPLETE REASON FOR EXAM: Female, 69 years old. Chronic pelvic pain LMP: TECHNIQUE: Transabdominal and Transvaginal TECHNICAL QUALITY: Adequate. COMPARISON: 07/19/2024. FINDINGS: The uterus is retroverted and is in a midline position. The uterus measures 6.9 x 5.0 x 3.3 cm. Normal uterine cervix. The endometrium measures 3 mm in thickness, and is hyperechoic. Trace fluid of the endocervical canal. There is no demonstrated endometrial mass. There is no demonstrated myometrial mass. I.U.D. - The patient does not have an I.U.D. The right ovary is visualized. The right ovary measures 2.7 x 1.4 x 0.9 cm. There is no right ovarian cyst or ovarian mass. There is no visualized right adnexal mass or complex lesion. There is normal arterial and normal venous vascularity. The left ovary is visualized. The left ovary measures 2.5 x 1.5 x 1.2 cm. There is a 1.9 cm cyst. There is no visualized left adnexal mass or complex lesion. There is normal arterial and normal venous vascularity. There is no fluid in the cul-de-sac. The pre void volume of the bladder was 552 ml. US/Pelvic w/ Transvaginal IMPRESSION: No definite acute or significant abnormality seen. Electronically Signed: Gopi Eckert MD at 22:20 EDT , CC: AMRITA Mireles; Dr. Chirag Owen MD Cadd Instructor: Signed Normal [facility] Pelvic w/ Transvaginalon Pelvic w/ Transvaginal [facility] Imaging Services [address] [place] [address] [phone] Pelvic w/ Transvaginal MR#: [id number] Acct: [id number] Name: SARANYA PITT Rep #: [id number] : 1955 F 69 From: Bc thakur MD PCP: Dr. Chirag Owen MD Status: [facility] Study: Pelvic w/ Transvaginal Date of Exam: 07/19/24 Exam# [id number] Ordering Dr: Brittany Mireles NP, NP [id number] STUDY: ULTRASOUND OF THE FEMALE PELVIS - COMPLETE REASON FOR EXAM: Female, 69 years old. Pelvic pain. LMP: Postmenopausal. TECHNIQUE: Transabdominal and Transvaginal TECHNICAL QUALITY: Adequate. COMPARISON: None. FINDINGS: The uterus is retroverted and is in a midline position. The uterus measures 6.8 cm x 5.7 cm x 4 cm. Normal uterine cervix. The endometrium is slightly thickened and measures 4 mm in thickness, and is fluid distended. There is no demonstrated endometrial mass. There is no demonstrated myometrial mass. I.U.D. - The patient does not have an I.U.D. The right ovary is visualized. The right ovary measures 1.9 cm x 0.9 cm x 0.8 cm. There is no right ovarian cyst or ovarian mass. There is no visualized right adnexal mass or complex lesion. There is normal arterial and normal venous vascularity. The left ovary is visualized. The left ovary measures 2 cm x 1.4 cm x 1.1 cm. There is a 1.8 cm x 1 cm x 0.8 cm follicle adjacent to the left ovary. There is no visualized left adnexal mass or complex lesion. There is normal arterial and normal venous vascularity. There is no fluid in the cul-de-sac. The pre void volume of the bladder was 256 ml. US/Pelvic w/ Transvaginal IMPRESSION: Minimal thickening of the endometrium and fluid distended. 1.8 cm x 1 cm x 0.8 some with follicle adjacent to the left ovary. Electronically Signed: Bc Ferrera MD at 15:39 EDT , CC: AMRITA Mireles; Dr. Chirag Owen MD Cadd Instructor: Signed Normal [facility] Chlamydia/GC JOSE aptimaon CHLAMY,NUC ACID Negative Normal Negative [facility] Comment on above: Performed By: #### L [id number] #### [facility] [address] [place], [address] GC BY NUC ACID Negative Normal Negative [facility] Comment on above: Result Comment: Perf ormed at: =G - [facility] [address] [place] [id number] Branch Officer: Caryn Hughes MD, Phone: [phone] Performed By: #### L [id number] #### [facility] [address] [place] [place], [address] Huc Ob Office Visit Reporton 07-10-2024 Huc Ob Office Visit Report [facility] [address] [place] [address] OFFICE VISIT Date of Service: 07/10/24 MR#: [id number] Acct: [id number] Name: SARANYA PITT Rep #: [id number] : 1955 Provider: AMRITA brown Age/Sex: 69/F Location: [facility] [place] Status: Signed Intake Vital Signs 03/09/24 13:53 07/10/24 13:05 07/10/24 13:09 Height 5 ft 4 in 5 ft 4 in 5 ft 4 in Weight: 181 lb BMI 31.0 BP 138/75 H Intake Visit 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: No Accompanied by: Self Is patient in pain?: No Allergies No Known Allergies Allergy (Verified 07/10/24 13:05) Medications ???Medication ???Instructions ???Recorded ???Confirmed ???Type acetaminophen 500 mg oral powder 1,000 mg PO Q6H PRN 08/10/23 07/10/24 History packet (Tylenol Extra Strength) PFSH Medical History Pain of left thumb History of meniscal tear Left shoulder pain COVID-19 Surgical History S/P tubal ligation Family History Father Diabetes Prostate cancer Mother Osteoarthritis Sister Autoimmune disease Brother CAD (coronary artery disease) Retinal toxoplasmosis Social History Smoking Status: Never smoker alcohol intake: current alcohol intake frequency: holidays/special occasions only substance use type: does not use caffeine: Yes what type of physical activity do you participate in: none seatbelt use: always do you feel safe at home: Yes additional social history: History 2 Elective abortions Hx Para 2 Spontaneous abortions Hx # Term Pregnancies Ectopic pregnancies Hx # Pregnancies Multiple births # of living children Past Pregnancies Del. Date Name GA/Weeks Outcome Route Bth Weight Gen Labor Lgth Anesthesia Del Locatn Provider FOB Unknown Kannan Unknown Pippa HPI Encounter for routine gynecological examination Details: SARANYA PITT is a 69 year old who presents for annual exam. Lower left side discomfort several months. Struggles with constipation and hemorrhoids. Does sometimes have blood with stool. Will also repeat STD swabs as was just sexually active at last exam. Declines serum STD screen Last PAP: NA History of abnormal PAP: no Last mammogram: 04/2023 History of abnormal mammogram: no Colon cancer screening: < 10 yr Other preventative health care screenings: Neel Female Reproductive History Questions: metorrhagia: No, sexually active: Yes, dyspareunia: No and PCB: No ROS Const Constitutional: Denies fatigue, weight gain or weight loss Cardio Card: Denies chest pain Resp Resp: Denies cough or dyspnea on exertion GI GI: Denies abdominal pain, bloating, change in stool character, constipation or vomiting : Reports as per HPI; Denies difficulty voiding, pelvic pain, urinary frequency, urinary incontinence, urinary urgency, vaginal discharge or vaginal pruritus Exam Const General: cooperative, healthy appearing, no acute distress and well developed Orientation: alert, oriented to person and oriented to place HENUT Head: normal to inspection Neck Neck: normal visual inspection Thyroid: thyroid normal Lymphatic: no lymphadenopathy noted Chest Breast inspection: normal inspection of the breasts and normal inspection of the axillae Breast palpation: normal palpation of the breasts, normal palpation of the axillae and no axillary lymphadenopathy Resp Effort Inspection: normal respiratory effort GI Palpation: soft, no masses and nontender Rectal Exam: deferred External Female Exam: normal external appearance and normal appearance of the urethra Urethra: normal appearance of the urethra and normal palpation Speculum Exam - Vagina: normal vaginal discharge and vagina atrophic (mild) Speculum Exam - Cervix: normal appearance of the cervix Bimanual Exam- Vagina Uterus: normal bimanual exam, uterine size normal, uterine shape normal and non-tender Bimanual Exam- Adnexa, other: normal adnexae, no masses, normal and non-tender Pelvic Support: normal Neuro General: patient alert and patient oriented x3 Psych Affect: normal affect Coding Level of Care Code Pelvic/Breast Diagnoses Encounter for gynecological examination with abnormal finding Z01.411 Gynecological examination findings: abnormal findings PRESENT Pelvic pain R10.2 Atrophic vaginitis N95.2 Assessment and Plan Assessment and Plan (1) Encounter for routine gynecological examination: Qualifiers: Gynecological examination findings: (more content not included)... Normal [facility] Chlamydia trachomatis rRNA d etection by probe and target amplification methodOrdered By: Brittany Mireles on 03-09-2024 C. trachomatis rRNA JOSE+probe Ql (Unsp spec) Negative Negative [facility] Gram stain for investigation of transfusion reactionOrdered By: Brittany Mireles on 03-09-2024 Microscopic observation Gram stain Nom (Unsp spec) [facility] - Microbiology an d Antimicrobial susceptibilityOrdered By: Brittany Mireles on 03-09-2024 N. gonorrhoeae DNA JOSE+probe Ql (Unsp spec) Negative Negative [facility] Comment on above: Performed at: =G - [address] [id number] Director: Caryn Hughes MD, Phone: [phone] No Panel InformationOrdered By: Brittany Mireles on 03-09-2024 Genital Culture Normal genital haris isolated [facility] No Panel Informationon 03-09 POC Trichomonas (Rapid) Negative [facility] Absolute lymphocyte counton 07-31-2022 Lymphocytes Auto (Unsp spec) [#/Vol] 1.20 10*3/uL 0.83-4.51 [facility] Work Phone: Basophil percentageon 2021 Basophils/100 WBC (Bld) 0.7 % 0-[address] [facility] Work Phone: Chloride [Moles/Vol] 106 mmol[facility]L 98-107 [facility] Work Phone: Cholesterol [Mass/Vol] 278 mg/dL <200 [facility] Work Phone: Comment on above: <200 mg/dL Desirable 200-240 mg/dL Borderline >240 mg/dL High Risk Eosinophils/100 WBC (Bld) 1.5 % 0-5 [facility] Work Phone: Glucose [Mass/Vol] 95 mg/dL 74-106 [facility] Work Phone: Neutrophils (Bld) [#/Vol] 3.6 10*3/uL 2.0-7.7 [facility] Work Phone: Neutrophils/100 WBC (Bld) 65.1 % 47-70 [facility] Work Phone: Potassium [Moles/Vol] 4.0 mmol/L 3.5-5.1 [facility] Work Phone: Sodium [Moles/Vol] 139 mmol/L 136-145 [facility] Work Phone: Triglyceride [Mass/Vol] 93 mg/dL <[address] [facility] Work Phone: Comment on above: The drugs N-Acetylcy steine and Metamizole may falsely depress this assay.Serum Triglycerides Reference Interval Normal <150 mg/dL Borderline high 150 - 199 mg/dL High 200 - 499 mg/dL Very High > or = 500 mg/dL WBC (Bld) [#/Vol] 5.5 10*3/uL 4.4-11.0 [facility] Work Phone: Blood erythrocytes count (nu mber/volume)on 07-31-2022 RBC (Bld) [#/Vol] 4.54 10*6/uL 4.2-5.4 [facility] Work Phone: Blood hemoglobin measurement (mass/volume)on 07-31-2022 Hemoglobin (Bld) [Mass/Vol] 13.9 g/dL 12.0-15.0 [facility] Work Phone: Blood lymphocytes/100 leukoc yteson 07-31-2022 Lymphocytes/100 WBC (Bld) 22.0 % 19-41 [facility] Work Phone: Blood monocytes/100 leukocyt eson 07-31-2022 Monocytes/100 WBC (Bld) 10.3 % 0-[address] [facility] Work Phone: Blood platelet mean volumeon 07-31-2022 Platelet mean volume (Bld) [Entitic vol] 9.8 fL 6.2-12.0 [facility] Work Phone: Determination of erythrocyte mean corpuscular volume (MCV)on 07-31-2022 MCV (RBC) [Entitic vol] 92.1 fL 81-[address] [facility] Work Phone: Hematocrit Auto (Bld) [Volum e fraction]on 07-31-2022 Hematocrit (Bld) [Volume fraction] 41.8 % 37-47 [facility] Work Phone: Laboratory - Chemistry and C hemistry - challengeon 07-31-2022 CO2 [Moles/Vol] 27.0 mmol/L 21.0-32.0 [facility] Work Phone: Urea nitrogen/Creatinine [Mass ratio] 25.4 mg/mg 10-20 [facility] Work Phone: Laboratory - Hematology and Cell countson 07-31-2022 Erythrocyte distribution width (RBC) [Entitic vol] 44.0 fL 35.1-43.9 [facility] Work Phone: Erythrocyte distribution width (RBC) [Ratio] 13.1 % 11.6-14.6 [facility] Work Phone: Immature granulocytes/100 WBC (Bld) 0.400 % 0.0-0.9 [facility] Work Phone: [phone] Comment on above: IG% - Immature Granu locytes (promyelocytes, myelocytes and metamyelocytes) > 1% indicates that a LEFT SHIFT is Present. MCH (RBC) [Entitic mass] 30.6 pg 27.0-32.0 [facility] Work Phone: [phone] Nucleated RBC/100 WBC (Bld) [Ratio] 0 % 0-5 [facility] Work Phone: [phone] MCHC Auto (RBC) [Mass/Vol]on 07-31-2022 MCHC (RBC) [Mass/Vol] 33.3 g/dL 32-36 [facility] Work Phone: [phone] No Panel Informationon 07-31 Estimated GFR (MDRD) Amer 113 mL/min >60 [facility] Work Phone: [phone] Comment on above: GFR Calc Estimated GFR (MDRD) Non-Af Amer 93 mL/min >60 [facility] Work Phone: [phone] Comment on above: Non- GFR Calc Platelets bldon 07-31-2022 Platelets (Bld) [#/Vol] 276 10*3/uL 150-450 [facility] Work Phone: [phone] Serum or plasma calcium isabel urement (mass/volume)on 07-31-2022 Calcium [Mass/Vol] 9.2 mg/dL 8.5-10.1 [facility] Work Phone: [phone] Serum or plasma cholesterol in HDL measurement (mass/volume)on 07-31-2022 Cholesterol in HDL [Mass/Vol] 68 mg/dL >40 [facility] Work Phone: [phone] Comment on above: The drugs N-Acetylcy steine and Metamizole may falsely depress this assay. Reference Range HDL <40 mg/dL Low HDL Cholesterol HDL >or= 60 mg/dL High HDL Cholesterol Serum or plasma cholesterol in VLDL measurement (mass/volume)on 07-31-2022 Cholesterol in VLDL [Mass/Vol] 19 mg/dL 5-40 [facility] Work Phone: [phone] Serum or plasma creatinine m easurement (mass/volume)on 07-31-2022 Creatinine [Mass/Vol] 0.67 mg/dL 0.55-1.02 [facility] Work Phone: Comment on above: The validity of the calculated GFR & GFRAA in patients over 70 years has not been determined. Clinical correlation is essential. Serum or plasma low density lipoprotein (LDL) cholesterol measurement (mass/volume)on 07-31-2022 Cholesterol in LDL [Mass/Vol] 191 mg/dL 0-130 [facility] Work Phone: Serum or plasma urea nitroge n measurement (mass/volume)on 07-31-2022 Urea nitrogen [Mass/Vol] 17 mg/dL 7-18 [facility] Work Phone: Thin prep Papanicolaou smear with manual screeningon 07-31-2022 Thin prep Papanicolaou smear with manual screening 6 5-15 [facility] Work Phone: COLONOSCOPY DIAGNOSTICon [facility] Vital Signs Date Time Vital Sign Value Performing Clinician Facility 05-09-2025 07:54-0400 Body height 162.56 cm Florentin Briceno MD Work Phone: [facility] 05-09-2025 07:54-0400 Body mass index (BMI) [Ratio] 31.7 kg/m2 Florentin Briceno MD Work Phone: [facility] 05-09-2025 07:54-0400 Body weight 83.91 kg Florentin Briceno MD Work Phone: [facility] 04-29-2025 17:14-0400 Body height 162.[address] Chirag Owen MD Work Phone: [facility] 04-29-2025 17:14-0400 Body mass index (BMI) [Ratio] 32.5 kg/m2 Dr. Chirag Owen MD Work Phone: [facility] 04-29-2025 17:14-0400 Body temperature 98.1 [degF] Dr. Chirag Owen MD Work Phone: [facility] 04-29-2025 17:14-0400 Body weight 86.[address] Chirag Owen MD Work Phone: [facility] 04-29-2025 17:14-0400 Diastolic blood pressure 83 mm[Hg] Dr. Chirag Owen MD Work Phone: [facility] 04-29-2025 17:14-0400 Heart rate 83 /min Dr. Chirag Owen MD Work Phone: [facility] 04-29-2025 17:14-0400 Respiratory rate 16 /min Dr. Chirag Owen MD Work Phone: [facility] 04-29-2025 17:14-0400 SaO2% (BldA) [Mass fraction] 98 % Dr. Chirag Owen MD Work Phone: [facility] 04-29-2025 17:14-0400 Systolic blood pressure 155 mm[Hg] Dr. Chirag Owen MD Work Phone: [facility] 03-09-2024 13:53-0400 Body height 162.[address] Chirag Owen Work Phone: [facility] 03-09-2024 13:53-0400 Body mass index (BMI) [Ratio] 30.6 kg/m2 Dr. Chirag Owen Work Phone: [facility] 03-09-2024 13:53-0400 Body weight 80.[address] Chirag Owen Work Phone: [facility] 03-09-2024 13:53-0400 Diastolic blood pressure 82 mm[Hg] Dr. Chirag Owen Work Phone: [facility] 03-09-2024 13:53-0400 Systolic blood pressure 140 mm[Hg] Dr. Chirag Owen Work Phone: [facility] 07-06-2022 14:16-0400 Diastolic blood pressure 83 mm[Hg] [facility] Work Phone: 07-06-2022 14:16-0400 Heart rate 82 /min [facility] Work Phone: 07-06-2022 14:16-0400 Respiratory rate 16 /min [facility] Work Phone: 07-06-2022 14:16-0400 SaO2% (BldA) [Mass fraction] 98 % [facility] Work Phone: 07-06-2022 14:16-0400 Systolic blood pressure 148 mm[Hg] [facility] Work Phone: 07-06-2022 13:04-0400 Body temperature 97.9 [degF] [facility] Work Phone: 07-06-2022 10:55-0400 Body height 162.56 cm [facility] Work Phone: 07-06-2022 10:55-0400 Body mass index (BMI) [Ratio] 33.5 kg/m2 [facility] Work Phone: 07-06-2022 10:55-0400 Body weight 88.45 kg [facility] Work Phone: 05-05-2022 15:58-0400 Body height 162.6 cm Tyson Prado MD Work Phone: [facility] 05-05-2022 15:58-0400 Body temperature 96.91 [degF] Tyson Prado MD Work Phone: [facility] 05-05-2022 15:58-0400 Body weight 88.36 kg Tyson Prado MD Work Phone: [facility] 05-05-2022 15:58-0400 Diastolic blood pressure 82 mm[Hg] Tyson Prado MD Work Phone: [facility] 05-05-2022 15:58-0400 Heart rate 100 /min Tyson Praod MD Work Phone: [facility] 05-05-2022 15:58-0400 SaO2% (BldA) [Mass fraction] 96 % Tyson Prado MD Work Phone: [facility] 05-05-2022 15:58-0400 Systolic blood pressure 124 mm[Hg] Tyosn Prado MD Work Phone: [facility] 04-21-2022 10:13-0400 Diastolic blood pressure 64 mm[Hg] Tyson Prado MD Work Phone: [facility] 04-21-2022 10:13-0400 Heart rate 87 /min Tyson Prado MD Work Phone: [facility] 04-21-2022 10:13-0400 Respiratory rate 16 /min Tyson Prado MD Work Phone: [facility] 04-21-2022 10:13-0400 SaO2% (BldA) [Mass fraction] 99 % Tyson Prado MD Work Phone: [facility] 04-21-2022 10:13-0400 Systolic blood pressure 109 mm[Hg] Tyson Prado MD Work Phone: [facility] 04-21-2022 08:38-0400 Body temperature 98.01 [degF] Tyson Prado MD Work Phone: [facility] Encounters Encounter Date Encounter Type Care Provider Facility Start: 07-10-2025 ambulatory [facility] Facility :[facility] Start: 05-29-2025 [facility] Facility :[facility] Start: 05-16-2025 End: 05-16-[address] Robbin Mcelroy DO -[facility] Work Phone: Start: 05-16-2025 End: 05-16-2025 ambulatory Florentin Briceno MD Work Phone: [facility] [employer] [facility] Work Phone: Start: 05-09-2025 End: 05-09-2025 Patient encounter procedure Sharri CROWE -[facility] Work Phone: Start: 05-09-2025 End: 05-09-2025 ambulatory Florentin Briceno MD Work Phone: [facility] [employer] [facility] Work Phone: Start: 05-08-2025 End: 05-08-2025 ambulatory Florentin Briceno MD Work Phone: [facility] Work Phone: Start: 05-08-2025 End: 05-08-2025 Patient encounter procedure Estefania Braxton CARTON FILLING MACHINE OPERATOR-C -[facility] Work Phone: Start: 05-08-2025 End: 05-08-2025 ambulatory Estefania Braxton Facility:[facility] Start: 05-04-2025 End: 05-04-2025 ambulatory Florentin Briceno MD Work Phone: [facility] Work Phone: Start: 05-04-2025 End: 05-04-[address] Robbin Mcelroy DO -[facility] Work Phone: Start: 05-04-2025 End: 05-04-2025 ambulatory Robbin Mcelroy Facility:[facility] Start: 05-02-2025 End: 05-02-[address] Robbin Mcelroy DO -[facility] Work Phone: Start: 05-02-2025 End: 05-02-[address] Chirag Owen MD Work Phone: [facility] Work Phone: Start: 04-29-2025 End: 04-29-2025 Emergency department patient visit Dr. Chirag Owen MD Work Phone: -Emergency Department Work Phone: Start: 04-03-2025 End: 04-03-2025 Telephone encounter Tyson Prado MD Work Phone: General Surgery Start: 03-21-2025 End: 03-21-2025 ambulatory TYSON PRADO Facility:[facility] Start: 01-03-2025 End: 01-03-[address] Alyssa Shaikh MD -Cat Scan [facility] Work Phone: Start: 01-03-2025 End: 01-03-2025 ambulatory Alyssa Pinoiff Facility:[facility] Start: 10-19-2024 End: 10-19-2024 ambulatory Brian Jackson CARTON FILLING MACHINE OPERATOR Facility:[facility] Start: 08-16-2024 End: 08-16-2024 ambulatory Brittany Mireles CARTON FILLING MACHINE OPERATOR Facility:[facility] Start: 07-19-2024 End: 07-19-2024 ambulatory Brittanygianni Mireles CARTON FILLING MACHINE OPERATOR Facility:[facility] Start: 07-10-2024 End: 07-10-2024 ambulatory Chirag Owen Facility:[facility] Start: 07-10-2024 End: 07-10-2024 ambulatory Chirag Owen Facility:[facility] Start: 03-09-2024 End: 03-09-[address] Chirag Owen Work Phone: [facility] Work Phone: Start: 03-09-2024 End: 03-09-[address] Chirag Owen Work Phone: [facility]-Laboratory, Specimen Work Phone: Start: 03-09-2024 End: 03-09-[address] Chirag Owen Work Phone: [facility] Work Phone: Start: 07-31-2022 End: 07-31-2022 ambulatory [facility] Work Phone: Start: 07-31-2022 End: 07-31-2022 Patient encounter procedure [facility] Start: 07-06-2022 End: 07-06-2022 Emergency department patient visit [facility]-Emergency Department Start: 06-11-2022 End: 06-11-2022 [facility] Start: 05-05-2022 End: 05-05-2022 Patient encounter procedure Tyson Prado MD Work Phone: General Surgery Comment on above: LLQ pain (Primary Dx ) Start: 04-21-2022 End: 04-21-2022 Subsequent hospital visit by physician Tyson Prado MD Work Phone: Ambulatory Surgery Comment on above: LLQ pain [R10.32] Start: 02-12-2022 Telephone encounter Tyson Prado MD Work Phone: General Surgery Comment on above: 04-21-2022 Colon ASC Procedures Date Procedure Procedure Detail Performing Clinician Start: 05-08-2025 Dual energy X-ray absorptiometry Florentin Briceno MD Work Phone: Start: 05-04-2025 MRI of joint of lowe r extremity Florentin Briceno MD Work Phone: Start: 04-29-2025 X-ray of knee, four or more views Dr[address] Chirag Owen MD Work Phone: Start: 01-03-2025 Computed tomography of abdomen and pelvis with contrast Dr. Chirag Owen MD Work Phone: Start: 03-09-[address] Ketty Owen Work Phone: Start: 03-09-2024 Investigation of transfusion reaction Dr. Chirag Owen Work Phone: Start: 07-06-2022 Radiologic examinati on of knee Start: 06-11-2022 Radiologic examinati on of knee Start: 04-21-2022 Colonoscopy flx dx w /collj spec when pfrmd Tyson Prado MD Work Phone: Start: 04-21-2022 Colonoscopy Tyson otero MD Work Phone: Start: 02-14-2014 Colonoscopy Tyson otero MD Work Phone: Start: 01-23-2014 Mammography Tyson otero MD Work Phone: Plan of Treatment Date Care Activity Detail Author Start: 04-21-2032 Colonoscopy COLONOSCOPY [facility] Start: 04-21-2032 COLORECTAL CANCER SCREENING COLORECTAL CANCER SCREENING [facility] Start: 04-21-2032 Screening for malignant neoplasm of colon [facility] Start: 2030 RSV Vaccine (1 - 1-dose 75+ series) RSV Vaccine (1 - 1-dose 75+ series) [facility] Start: 07-30-2025 Influenza vaccination Influenza Vaccine (Season Ended) [facility] Start: 04-29-2025 [facility] Start: 11-29-2024 Advance Directive Discussion Advance Directive Discussion [facility] Start: 07-30-2024 Covid-19 Vaccine ( season) Covid-19 Vaccine ( season) [facility] Start: 02-15-2024 Colonoscopy COLONOSCOPY [facility] Start: 02-15-2024 COLORECTAL CANCER SCREENING COLORECTAL CANCER SCREENING [facility] Start: 01-02-2024 Urine microalbumin profile DTaP,Tdap,Td Vaccine (3 - Td or Tdap) [facility] Start: 07-30-2022 Influenza vaccination [facility] ([facility] Ended) [facility] Start: 03-15-2022 DIABETES SCREEN DIABETES SCREEN [facility] Start: 03-15-2022 Diabetes Screening Diabetes Screening [facility] Start: 03-07-2022 Screening for malignant neoplasm of colon Cologuard (FIT-DNA) [facility] Start: 11-29-2021 ADVANCE DIRECTIVE DISCUSSION ADVANCE DIRECTIVE DISCUSSION [facility] Start: 09-03-2021 COVID-19 VACCINE (3 - Booster for Moderna series) COVID-19 VACCINE (3 - Booster for Moderna series) [facility] Start: 2020 BONE DENSITY BONE DENSITY [facility] Start: 2020 PNEUMOCOCCAL: 65+ (1 - PCV) PNEUMOCOCCAL: 65+ (1 - PCV) [facility] Start: 2020 PNEUMOVAX AGE 65 AND OVER WITH 5YR LOOKBACK (#1) PNEUMOVAX AGE 65 AND OVER WITH 5YR LOOKBACK (#1) [facility] Start: 2020 Screening for osteoporosis Bone Density Screening [facility] Start: 01-23-2015 Mammography MAMMOGRAM [facility] Start: 01-23-2015 Screening for malignant neoplasm of breast Mammogram Screening [facility] Start: 2005 Pneumococcal Vaccine: 50+ (1 of 1 - PCV) Pneumococcal Vaccine: 50+ (1 of 1 - PCV) [facility] Start: 2005 SHINGRIX VACCINE (1 of 2) SHINGRIX VACCINE (1 of 2) [facility] Start: 2000 COLOGUARD (FIT-DNA) COLOGUARD (FIT-DNA) [facility] [facility] Start: [address] COLONOGRAPHY [facility] Start: 2000 FECAL OCCULT BLOOD FECAL OCCULT BLOOD [facility] Start: 2000 Lipid panel Lipid Screening [facility] Start: 2000 LIPID SCREEN LIPID SCREEN [facility] Start: 2000 Screening for malignant neoplasm of colon [facility] Start: 2000 SIGMOIDOSCOPY SIGMOIDOSCOPY [facility] Start: 1974 Urine microalbumin profile DTAP,TDAP,TD (2 - Tdap) [facility] Start: 1973 Anxiety Screening Anxiety Screening [facility] Start: 1973 Depression Screening Depression Screening [facility] Start: 1973 HEPATITIS C SCREENING HEPATITIS C SCREENING [facility] Start: 1973 Hepatitis C screening Hepatitis C Screening [facility] Start: 1967 Adult depression screening assessment DEPRESSION SCREENING [facility] MG Breast - bilatera l Screening [facility] Patient Education [facility] Work Phone: Patient referral [facility] Work Phone: [facility] Immunizations Immunization Date Immunization Notes Care Provider Fa cili 12-10-1962 diphtheria and tetan us toxoids, adsorbed for pediatric use Tyson Prado MD Work Phone: [facility] 12-10-1962 vaccinia (smallpox) vaccine, diluted Tyson Prado MD Work Phone: [facility] 03-29-1962 trivalent poliovirus vaccine, live, oral Tyson Prado MD Work Phone: [facility] 01-27-1962 trivalent poliovirus vaccine, live, oral Tyson Prado MD Work Phone: [facility] 11-29-1961 trivalent poliovirus vaccine, live, oral Tyson Prado MD Work Phone: [facility] 06-08-1957 trivalent poliovirus vaccine, live, oral Tyson Prado MD Work Phone: [facility] Payers Date Payer Category Payer Private Health Insurance [id number] 2024 Self-pay [id number] 2021 [employer] Blue [employer] BLUE ACCE PPO [id number] 2021 Unknown [employer] BLUE ACCE [facility] [id number] 2021-Present [phone] [place] [id number] [facility] [id number] 2021 Unknown [id number] Medicare [id number] Unknown [id number] Unknown [id number] [id number]. 462 Unknown [id number] 2.0.1.611969.3.579.2. 462 Unknown [id number] 2.16840.1.172539.3.579.2. 462 Unknown [id number] [id number]. 462 Unknown [id number] 2.0.1.490554.3.579.2. 462 Unknown [id number] 2.16.840.1.681210.3.579.2. 462 Unknown [id number] 2.16.840.1.006610.3.579.2. 462 Unknown [id number] 2.16.840.1.458109.3.579.2. 462 Unknown [id number] 2.16.840.1.188715.3.579.2. 462 Unknown [id number] 2.16.840.1.875540.3.579.2. 462 Unknown [id number] 2.16.840.1.153880.3.579.2. 462 Unknown [id number] 2.16.840.1.015480.3.579.2. 462 Unknown [id number] 2.16.840.1.014209.3.579.2. 462 Unknown [id number] [id number]. 462 Social History Date Type Detail Facility Start: 02-12-2022 End: 04-29-2025 Tobacco smoking status NHIS Never smoked tobacco [facility] Start: 02-12-2022 End: 03-21-2025 Alcohol intake Current drinker of alcohol (finding) [facility] Start: 1955 Sex Assigned At Not on file [facility] Start: 02-02-2022 End: 05-05-2022 Exposure to SARS-CoV-2 (event) Not sure [facility] Start: 01-28-2022 End: 03-09-2024 Tobacco smoking status LAIS Unknown if ever smoked [facility] Start: 1955 Sex Assigned At Female [facility] Start: 02-12-2022 Tobacco use and exposure Smokeless tobacco non-user [facility] Start: 03-21-2025 History of Social function [facility] Start: 03-21-2025 Tobacco use panel [facility] National Score (1-100), lower number is lower risk 47 [facility] Start: 04-17-2022 Gender identity Identifies as female gender (finding) [facility] Functional Status Date Assessment Result Facility 02-14-2014 Are you deaf, or do you have serious difficulty hearing No 02/14/2014 8:05 AM Naya Lopez LPN No [facility] Work Phone: 02-14-2014 Are you blind, or do you have serious difficulty seeing, even when wearing glasses No 02/14/2014 8:05 AM Naya Lopez LPN No [facility] 02-14-2014 Do you have serious difficulty walking or climbing stairs No 02/14/2014 8:05 AM Naya Lopez LPN No [facility] 02-14-2014 Do you have difficul ty dressing or bathing No 02/14/2014 8:05 AM Naya Lopez LPN No [facility] 02-14-2014 Because of a physica l, mental, or emotional condition, do you have difficulty doing errands alone such as visiting a physician's office or shopping No 02/14/2014 8:05 AM Naya Lopez LPN No [facility] Mental Status Date Assessment Result Facility 02-14-2014 Because of a physica l, mental, or emotional condition, do you have serious difficulty concentrating, remembering, or making decisions No 02/14/2014 8:05 AM Naya Lopez LPN No [facility] Clinical Notes 02-12-2022 to 05-02-2025 Note Date & Type Note Facility 05-02-2025 Evaluation note Diagnosis Onset Date Resolution Acute medial meniscus tear of right knee acute May 02 9:53am [facility] Work Phone: [phone]) [phone] Evaluation note* Diagnosis Onset Date Resolution Status Admit Date Acute medial meniscus tear o f right knee acute May 02, 2025 9 :53am Acute medial meniscus tear o f right knee acute May 09, 2025 7:53am [facility] Work Phone: 1(367) 676-333906-04-2025 Evaluation note* Diagnosis Onset Date Resolution Status Admit Date Acute medial meniscus tear o f right knee acute May 02, 2025 9 :53am Acute medial meniscus tear o f right knee acute May 09, 2025 7:53am Acute medial meniscus tear o f right knee acute May 16, 2025 7:49am Osteoarthritis of right knee acute May 16, 2025 7:49am [facility] Work Phone: 1(176) 475-680306-01-2025 Discharge summary [facility] Medical Records Department [address] [place] [address] Emergency Department Summary 04/29/25 MR#: [id number] Acct: [id number] Name: SARANYA PITT Rep #:[id number] : 1955 69 From: Florentin Briceno MD PCP: AMRITA Montemayor Status:REG ER Location: ED HPI History of Present Illness Chief Complaint: Lower Extremity Injury Narrative Narrative: 69-year-old female presents with right knee pain that has increased today. She and her partner relate history that she had a fall a few days ago onto her rightknee. She had been able to ambulate. Today, she states that her knee pain has increased significantly. She denies any fevers or chills, no redness to the area. The pain is extreme in her knee that she is only able to crawl and is unable to bear weight on it. She is having problems extending it as well. She denies that when she fell she had any hitting of her head or loss of consciousness. PFSH PFS Medical History Pain of left thumb History of meniscal tear Left shoulder pain COVID-19 Home Medications ?Medication ?Instructions ?Recorded ?Last Taken ?Type oxycodone 5 mg tablet 5 mg PO Q6H PRN pain 3 days #12 04/29/25 Unknown Rx tabs Allergy/AdvReac Type Severity Reaction Status Date / Time No Known Allergies Allergy Verified 04/29/25 17:14 Family History Father Diabetes Prostate cancer Mother Osteoarthritis Sister Autoimmune disease Brother CAD (coronary artery disease) Retinal toxoplasmosis Surgical History S/P tubal ligation Social History Smoking Status: Never smoker alcohol intake: current alcohol intake frequency: holidays/special occasions only substance use type: does not use caffeine: Yes what type of physical activity do you participate in: none seatbelt use: always do you feel safe at home: Yes additional social history: ROS ROS ED ROS Narrative Review of systems positive for right knee pain. No fevers or chills, no nausea or vomiting. Pain worse with movement and weightbearing. Unable to walk. EXAM Physical Exam Narrative Exam Narrative: GCS 15. ABCs intact. Cardiovascular examination regular rate and rhythm. Lungs clear to auscultation bilaterally. Abdomen soft nontender. Neurological examination nonfocal and nonlateralizing. Patient is holding her knee in flexion on the right. She appears neurovascularly intact distally with a dorsalis pedis pulse that is palpable. She has mild tenderness in the right posterior medial biceps for Deven tendon, no crepitance. She also has pain along the lateral collateral ligament and in the medial meniscal line. Const Vital Signs: 04/29/25 17:14 Temperature 98.1 F Temperature Source Oral Pulse Rate 83 Respiratory Rate 16 Blood Pressure 155/83 H Blood Pressure Mean 107 Pulse Ox 98 Oxygen Delivery Method Room Air MDM MDM MDM Narrative Medical decision making narrative: Differential diagnosis includes but not limited to knee contusion versus medial meniscus cartilage tear versus medial collateral ligament tear versus biceps forMorris strain/sprain. I have low suspicion for DVT or arthritis as the history and physical does not support this. I do not feel that she requires any laboratory work or arthrocentesis. She was administered oxycodone and x-rays were obtained of the right knee and 4 views. They were interpreted by myself independently. I see no evidence of an acute fracture or effusion. I reviewed the radiology report which comments on the superior patellar enthesophyte which is not attached to the patella and could be fractured. It isof indeterminate chronicity favored remote givenno significant joint effusion or soft tissue swelling. On direct correlation, she is not having tenderness inthat area. At this point in time, there is mild arthritis noted on x-ray as well. I feel she can be discharged to follow-up with orthopedics. She probablyhas more of an internal derangement of her knee. She will be placed in a knee immobilizer and given a walker to help with ambulation. She can be touchdown weightbearing. Additionally, I discussed with her the possibility of observation given her inability to ambulate freely, but she declined. She was written for a walker, and 12 oxycodone 5 mg tablets to help with analgesia. She will follow-up with orthopedics as an outpatient. Return instructions to the emergency department were reviewed. Disposition is discharge, home in stable condition. History & Record Review Discussion w/independent historian: Patient Radiography X-Ray: Read by ED Physician, Read by Radiologist and No Fracture Diagnostic Testing: Clinical Impression(s) from Imaging Studies Knee X-Ray 04/29/25 17:30 IMPRESSION: 1. Superior patellar enthesophyte which is not attached to the patella, and could be fractured. This finding is of indeterminate chronicity, favored remote given no significant joint effusion or soft tissue swelling. Correlate for tenderness to palpation. 2. Mild osteoarthritis. Reading Location: [id number] Discharge Plan Triage Chief Complaint: Lower Extremity Injury ED Provider: Florentin Briceno Dx/Rx/DC Orders Clinical Impression: Knee pain, right, Internal derangement of right knee Instructions: ED Meniscal Injury Knee Poss, ED Home Care For Knee Pain, ED KneeSprain Ligaments Prescriptions: New oxycodone 5 mg tablet 5 mg PO Q6H PRN (Reason: pain) 3 Days Qty: 12 0RF Primary Care Provider: Estefania Braxton Referrals: Chirag Owen MD [Med Staff - Wood Grinder Operator] - Robbin Mcelroy DO [Med Staff - Active Staff] - As soon as possible Activity Restrictions/Additional Instructions: Follow-up with orthopedics as soon as possible. Return to the emergency department with fever, redness to right knee, new or worsening symptoms. Print Language: Spanish Disposition Disposition: Home, Self Care What to do if you have Problems For any increased pain, shortness of breath, bleeding, nausea or vomiting, chestpain, or any unexpected problems, contact your Primary Care Provider. Call [facility] ([phone]) or report tothe closest Emergency Room. Call 911 if necessary. 04/29/251812 Cosigner Signature (if applicable): CC: CARTON FILLING MACHINE OPERATORRyanne Braxton ~ Signed [facility]06-01-2025 Radiology Diagnostic study note [facility] Imaging Services [address] [place] [address] Knee 4 or More Views MR#: [id number] Acct: [id number] Name: SARANYA PITT Rep #: [id number] : 1955 F 69 From: Ileana Sánchez MD PCP: AMRITA Montemayor Status: REG ER Study:Knee 4 or More Views Date of Exam: 04/29/25 Exam# [id number] Ordering Dr: Florentin Briceno MD PROCEDURE: KNEE 4 OR MORE VIEWS 04/29/2025 REASON FOR EXAM: TRAUMA, PAIN TECHNIQUE: 4 view(s) of the right knee COMPARISON: None FINDINGS: There is a tiny osseous fragment just superior to the patella. Mild joint spacenarrowing in the medial and patellofemoral compartments. No significant joint effusion. The soft tissues are unremarkable. RAD/Knee 4 or More Views IMPRESSION: 1. Superior patellar enthesophyte which is not attached to the patella, and could be fractured. This finding is of indeterminate chronicity, favored remote given no significant joint effusion or soft tissue swelling. Correlate for tenderness to palpation. 2. Mild osteoarthritis. Reading Location: [id number] CC: CARTON FILLING MACHINE OPERATOR-C Estefania Braxton; Dr. Florentin Briceno MD ~ Cadd Instructor: Signed [facility]06-01-2025 Discharge summary Author Florentin Briceno [facility] Note Date/Time April 29, 2025 6:13p m [facility] Medical Records Department [address] [place] [id number] Emergency Department Summary 04/29/25 MR#: [id number] Acct: [id number] Name: SARANYA PITT Rep #:[id number] : 1955 69 From: Florentin Briceno MD PCP: AMRITA Montemayor Status:REG ER Location: ED HPI History of Present Illness Chief Complaint: Lower Extremity Injury Narrative Narrative: 69-year-old female presents with right knee pain that has increased today. She and her partner relate history that she had a fall a few days ago onto her rightknee. She had been able to ambulate. Today, she states that her knee pain has increased significantly. She denies any fevers or chills, no redness to the area. The pain is extreme in her knee that she is only able to crawl and is unable to bear weight on it. She is having problems extending it as well. She denies that when she fell she had any hitting of her head or loss of consciousness. [facility] Medical History Pain of left thumb History of meniscal tear Left shoulder pain COVID-19 Home Medications ?Medication ?Instructions ?Recorded ?Last Taken ?Type oxycodone 5 mg tablet 5 mg PO Q6H PRN pain 3 days #12 04/29/25 Unknown Rx tabs Allergy/AdvReac Type Severity Reaction Status Date / Time No Known Allergies Allergy Verified 04/29/25 17:14 Family History Father Diabetes Prostate cancer Mother Osteoarthritis Sister Autoimmune disease Brother CAD (coronary artery disease) Retinal toxoplasmosis Surgical History S/P tubal ligation Social History Smoking Status: Never smoker alcohol intake: current alcohol intake frequency: holidays/special occasions only substance use type: does not use caffeine: Yes what type of physical activity do you participate in: none seatbelt use: always do you feel safe at home: Yes additional social history: ROS ROS ED ROS Narrative Review of systems positive for right knee pain. No fevers or chills, no nausea or vomiting. Pain worse with movement and weightbearing. Unable to walk. EXAM Physical Exam Narrative Exam Narrative: GCS 15. ABCs intact. Cardiovascular examination regular rate and rhythm. Lungs clear to auscultation bilaterally. Abdomen soft nontender. Neurological examination nonfocal and nonlateralizing. Patient is holding her knee in flexion on the right. She appears neurovascularly intact distally with a dorsalis pedis pulse that is palpable. She has mild tenderness in the right posterior medial biceps for Deven tendon, no crepitance. She also has pain along the lateral collateral ligament and in the medial meniscal line. Const Vital Signs: 04/29/25 17:14 Temperature 98.1 F Temperature Source Oral Pulse Rate 83 Respiratory Rate 16 Blood Pressure 155/83 H Blood Pressure Mean 107 Pulse Ox 98 Oxygen Delivery Method Room Air MDM MDM MDM Narrative Medical decision making narrative: Differential diagnosis includes but not limited to knee contusion versus medial meniscus cartilage tear versus medial collateral ligament tear versus biceps forMorris strain/sprain. I have low suspicion for DVT or arthritis as the history and physical does not support this. I do not feel that she requires any laboratory work or arthrocentesis. She was administered oxycodone and x-rays were obtained of the right knee and 4 views. They were interpreted by myself independently. I see no evidence of an acute fracture or effusion. I reviewed the radiology report which comments on the superior patellar enthesophyte which is not attached to the patella and could be fractured. It isof indeterminate chronicity favored remote given no significant joint effusion or soft tissue swelling. On direct correlation, she is not having tenderness inthat area. At this point in time, there is mild arthritis noted on x-ray as well. I feel she can be discharged to follow-up with orthopedics. She probablyhas more of an internal derangement of her knee. She will be placed in a knee immobilizer and given a walker to help with ambulation. She can be touchdown weightbearing. Additionally, I discussed with her the possibility of observation given her inability to ambulate freely, but she declined. She was written for a walker, and 12 oxycodone 5 mg tablets to help with analgesia. She will follow-up with orthopedics as an outpatient. Return instructions to the emergency department were reviewed. Disposition is discharge, home in stable condition. History & Record Review Discussion w/independent historian: Patient Radiography X-Ray: Read by ED Physician, Read by Radiologist and No Fracture Diagnostic Testing: Clinical Impression(s) from Imaging Studies Knee X-Ray 04/29/25 17:30 IMPRESSION: 1. Superior patellar enthesophyte which is not attached to the patella, and could be fractured. This finding is of indeterminate chronicity, favored remote given no significant joint effusion or soft tissue swelling. Correlate for tenderness to palpation. 2. Mild osteoarthritis. Reading Location: [facility] Discharge Plan Triage Chief Complaint: Lower Extremity Injury ED Provider: Florentin Briceno Dx/Rx/DC Orders Clinical Impression: Knee pain, right, Internal derangement of right knee Instructions: ED Meniscal Injury Knee Poss, ED Home Care For Knee Pain, ED KneeSprain Ligaments Prescriptions: New oxycodone 5 mg tablet 5 mg PO Q6H PRN (Reason: pain) 3 Days Qty: 12 0RF Primary Care Provider: Estefania Braxton Referrals: Chirag Owen MD [Med Staff - Wood Grinder Operator] - Robbin Mcelroy DO [Med Staff - Active Staff] - As soon as possible Activity Restrictions/Additional Instructions: Follow-up with orthopedics as soon as possible. Return to the emergency department with fever, redness to right knee, new or worsening symptoms. Print Language: Spanish Disposition Disposition: Home, Self Care What to do if you have Problems For any increased pain, shortness of breath, bleeding, nausea or vomiting, chestpain, or any unexpected problems, contact your Primary Care Provider. Call [facility] ([phone]) or report to the closest Emergency Room. Call 911 if necessary. 04/29/251812 <Electronically signed by Florentin Briceno MD> Cosigner Signature (if applicable): CC: CARTON FILLING MACHINE OPERATOR-C Estefania Braxton ~ Signed [facility] Work Phone: 1(970) 842-291005-06-2025 Telephone encounter Note* Telephone Encounter - Ayesha Smith RN - 04/03/2025 4:47 PM EDT Images requested from [facility] and [facility] [phone] [facility]05-06-2025 Miscellaneous Notes* Telephone Encounter - Ayesha Smith RN - 04/03/2025 4:47 PM EDT Images requested from [facility] and [facility] [phone] [facility] NoteHNO ID: [id number] Author: TYSON PRADO MD Service: ? Author Type: Physician Type: Progress Notes Filed: 03/22/2025 05:49 Note Text: FOLLOW UP VISIT NAME: Saranya Pitt CLINIC NO.: [id number] DATE OF SERVICE: 03/21/2025 : 1955 REFERRING PHYSICIAN: Chirag Owen MD Saranya is a patient I am following for episodic left lower quadrant pain. Saranya is a 69-year-old female presenting with lower abdominal pain and concerns about a pancreatic cyst. Saranya reports intermittent lower abdominal pain near the groin, which she initially feared was related to her colon. The pain episodes occur sporadically, lasting approximately 30 minutes each time, and are described as dull. She notes that the pain was more severe previously but has since lessened in intensity. She denies any changes in bowel habits or hematochezia. She also denies any noticeable bulges in the groin area or obvious hernias. Due to the pain, she consulted a party plan dealer who ordered two pelvic ultrasounds. The first ultrasound revealed a cyst on her ovary, and a follow-up ultrasound a couple of months later showed no change in the cyst's size. She is postmenopausal and has not had periods for a long time. Recently, she was treated for a sinus infection by Dr. Owen, who reviewed a CT scan performed on 01/03/2024. The CT scan reportedly showed no inflammatory changes in the bowel loops, but Dr. Owen mentioned a finding in the pancreas, which led to her referral for further evaluation. She expresses concern about the possibility of parasitic cysts, although she acknowledges that these are rare in the [place]. Additionally, she had a finger x-ray in September due to thumb pain, which showed arthritis and osteopenia. She was prescribed a cream for arthritis management. I had last seen Backe in 2021 at that time and noted: The patient is a 66 year old female referred for endoscopy. Saranya notes left lower quadrant pain that started approximately 6 months previously. She notes the pain is about a 3 out of 10 and is intermittent. She notes that its worse when she lays on her left side. She notes no issues that really improve the pain. She states she has a history of chronic constipation. She takes Benefiber to improve those issues. She notes occasional bright blood per rectum secondary to straining with her constipation. She notes a history of hemorrhoidal irritation in the past. She denies melena. She denies nausea, vomiting or diarrhea. The patient notes no history of upper GI complaints. Saranya has undergone prior endoscopy. When colonoscopy in 2013 for which a hyperplastic polyp was found in the rectosigmoid area. I performed lower endoscopy on April 21, 2022. The patient was found to have: Impression: - The entire examined colon is normal on direct and retroflexion views. - No specimens collected. The patient notes resolution of her left lower quadrant complaints since the procedure. VITALS: Blood pressure 122/82, pulse 92, temperature 36.6 ?C (97.8 ?F), height 162.6 cm (5' 4), weight 87.8 kg (193 lb 9.6 oz), SpO2 96%. On examination, respiratory dam was clear to auscultation. Cardiac exam is regular rhythm, abdominal exam is soft, no tenderness except to some mild deep palpation in the left lower quadrant, no palpable hernias, Assessment IMPRESSION: Left lower quadrant pain, concern about abnormal finding on CT scan 1. Cyst of left ovary (N83.202) Stable 1.9 cm cyst on the left ovary, confirmed by two pelvic ultrasounds on 07/19 and 08/16. No significant changes noted. Continue monitoring. No immediate intervention required. 2. Left lower quadrant pain (R10.32) Intermittent dull pain lasting approximately 30 minutes, located near the groin. No changes in bowel habits or hematochezia. Recent CT scan on 01/03 showed no inflammatory changes in the bowel loops, normal liver, decompressed gallbladder, and a tiny low attenuating lesion within the pancreatic tail too small to characterize. No hernias detected on physical examination. - Reviewed CT scan findings; pancreatic cyst is common and typically benign. - Will review imaging studies further; if necessary, consider ordering a specific pancreatic CT scan with and without IV contrast or an MRI. - Patient educated on the rarity of parasitic cysts in the [place] and reassured about the benign nature of the findings. Diagnoses: (R10.32) Left lower quadrant pain (primary encounter diagnosis) (N83.202) Cyst of left ovary Return to Clinic: The patient is instructed to follow-up with me as needed. Tyson Prado, [facility]06-07-2022 Instructions* Patient Instructions* Tyson Prado MD - 05/05/2022 4:26 PM EDT The following instructions are important for you related to your office visit today with the [facility] General Surgeons. INSTRUCTIONS FOR CONSTIPATION FOLLOWING NORMAL COLONOSCOPY I discussed with you the findings of your colonoscopy. Since there were no worrisome abnormalities,I recommend you undergo repeat endoscopic screening at 10 year intervals. If you have a family history of colon cancer, then follow up endoscopy should be every 5 years. This is the current recommendation for colon cancer screening. If you note bleeding, change in bowel habits, or other suspicious colon related symptoms before that time, those symptoms should be evaluated as necessary. Constipation in the setting of a normal endoscopy can almost always be managed with the following modifications. A high fiber diet including increasing whole grains, fruits and vegetables and increasing liquid intake will improve most issues with constipation. Please note that increasing liquid intake means clear liquids or juice. 6 - 8 8 ounce glasses of liquid per day should be the goal. Caffeine containing beverages do not count towards that goal. If these modifications do not improve the constipation symptoms sufficiently, surfactant stool softers (dulcolax, docusate or similar) or Miralax can be used as needed. Miralax is now over the counter. It is typically started at 1 capful in 8 ounces of liquid daily. It can be increased (twice a day) or decreased (1/2 capful or every other day) as needed. These agents will not cause damage to the colon even if used chcf Plant based laxatives (Cascara, Senna, Aloin from Aloe Vera), are GI stimulants that can damage thecolon if used intermediate manager. Care should be taken to review the active ingredient list on all over the counter laxatives to be sure that these are not taken inadvertently. An example is that not all Sennokot formulations contain Senna as an active ingredient. If you have any difficulties or concerns, you should contact our office immediately. If you note any additional difficulties, questions, or concerns, you should contact our office immediately @ [phone] and ask to be transferred to the General Surgery department. documented [facility] History of Present illness Narrative* Tyson Prado MD - 05/05/2022 3:40 PM EDT FOLLOW UP VISIT - ENDOSCOPY NAME: Saranya Logan [facility] NO.: [id number] DATE OF SERVICE: 05/05/2022 : 1955 REFERRING PHYSICIAN: Alyssa Shaikh MD Saranya is a patient I am following for LLQ pain. The patient is a 66 year old female referred for endoscopy. Saranya notes left lower quadrant pain that started approximately 6 months previously. She notes the pain is about a 3 out of 10 and is intermittent. She notes that its worse when she lays on her left side. She notes no issues that really improve the pain. She states she has a history of chronic constipation. She takes Benefiber to improve those issues. She notes occasional bright blood per rectum secondary to straining with her constipation. She notes a history of hemorrhoidal irritation in the past. She denies melena. She denies nausea, vomiting or diarrhea. The patient notes no history of upper GI complaints. Saranya has undergone prior endoscopy. When colonoscopy in 2013 for which a hyperplastic polyp was found in the rectosigmoid area. I performed lower endoscopy on April 21, 2022. The patient was found to have: Impression: - The entire examined colon is normal on direct and retroflexion views. - No specimens collected. The patient notes resolution of her left lower quadrant complaints since the procedure. VITALS: There were no vitals taken for this visit. On examination, the abdomen is benign. Assessment IMPRESSION: Resolved left lower quadrant complaints, normal colonoscopy PLAN: If the patient notes any problems or recurrence of her left lower quadrant complaints, she should contact our office and then I will likely plan for a CT scan. I discussed with you the findings of your colonoscopy. Since there were no worrisome abnormalities,I recommend you undergo repeat endoscopic screening every 10 years. This is the current recommendation for colon cancer screening. If you note bleeding, change in bowel habits, or other suspicious colon related symptoms before that time, those symptoms should be evaluated as necessary. Diagnoses: (R10.32) LLQ pain (primary encounter diagnosis) Return to Clinic: The patient is instructed to follow-up with me as needed. Tyson Prado MD documented in this encounterK[facility]05-[facility] Nurse Note* Gina Rob RN - 04/21/2022 9:53 AM EDT Abdomen soft non-distended. Will continue to monitor. documented in this encounterK[facility]05-24-2022 History and physical note * Tyson Prado MD - 04/21/2022 9:00 AM EDT UPDATED PROCEDURAL SEDATION HISTORY AND PHYSICAL EXAMINATION SERVICE DATE: 04/21/2022 SERVICE TIME: 9:09 AM PHYSICAL EXAM MUST BE COMPLETED ON ADMISSION PROCEDURE: Procedure Indications: The History and Physical (completed in the past 30 days) has been reviewed and the patient has beenexamined. The contents accurately reflect the patient's condition with the following additions or revisions since the H&P was completed. ASA Class: ASA Class:: Patient with mild systemic disease Examination indicates no changes. AIRWAY: Airway Visualization of Uvula: Yes Mouth opening greater than 2 fingerbreadths: Yes Neck Full Range of Motion: Yes LUNGS: Lungs clear to auscultation CARDIAC: Regular rhythm,Regular rate Provisional Diagnosis/Treatment Plan: LLQ pain - COlonoscopy SEDATION GOAL: Moderate This H&P can be found in the attached. SIGNATURE: Tyson Prado MD PATIENT NAME: Saranya Pitt DATE: April 21, 2022 TIME: 9:09 AM * Tyson Prado MD - 04/21/2022 9:00 AM EDT Images from the original note were not included. HISTORY AND PHYSICAL Saranya Pitt 1955 REFERRING PHYSICIAN: Self CHIEF COMPLAINT: Consult (Abd pain) HPI: The patient is a 66 year old female referred for endoscopy. Saranya notes left lower quadrant pain that started approximately 6 months previously. She notes the pain is about a 3 out of 10 and is intermittent. She notes that its worse when she lays on her left side. She notes no issues that really improve the pain. She states she has a history of chronic constipation. She takes Benefiber to improve those issues. She notes occasional bright blood per rectum secondary to straining with her constipation. She notes a history of hemorrhoidal irritation in the past. She denies melena. She denies nausea, vomiting or diarrhea. The patient notes no history of upper GI complaints. Saranya has undergone prior endoscopy. When colonoscopy in 2013 for which a hyperplastic polyp was found in the rectosigmoid area. PAST MEDICAL HISTORY PAST MEDICAL HISTORY Diagnosis Date NEGATIVE MEDICAL HISTORY PAST SURGICAL HISTORY PAST SURGICAL HISTORY Procedure Laterality Date LIG/TRNSXJ FLP TUBE ABDL/VAG APPR UNI/BI CURRENT MEDICATIONS Current Outpatient Medications Medication Sig multivitamin (DAILY VITAMIN) tablet Take 1 tablet by mouth once daily. Lysine (L-LYSINE) 500 mg tab Take 1 tablet by mouth once daily. calcium carbonate-vitamin D3 (CALTRATE 600 + D) 600 mg (1,500 mg)-800 unit chew Take 1 tablet by mouth once daily. biotin 5 mg tab Take 1 tablet by mouth once daily. peg 3350-Electrolytes (GOLYTELY) 236-22.74-6.74 -5.86 gram suspension Refer to printed prep instructions from your provider. No current facility-administered medications for this visit. ALLERGIES: Patient has no known allergies. PERSONAL HISTORY: SOCIAL HISTORY Social History Tobacco Use Smoking status: Never Smoker Smokeless tobacco: Never Used Vaping Use Vaping Use: Never used Substance Use Topics Alcohol use: Yes Comment: seldom Drug use: Never FAMILY HISTORY: FAMILY HISTORY FAMILY HISTORY Problem Relation Age of Onset Diabetes Father Cancer Father Diabetes Paternal Grandmother REVIEW OF SYMPTOMS: The review of systems data was entered by the nurse and reviewed by hi Nursing Notes: Ayesha Smith RN 02/12/2022 1:37 PM Signed REVIEW OF SYSTEMS: General: The patient denies fatigue, denies weight loss, NOTES weight gain, denies feeling hot, anddenies feelings of cold. Eyes: The patient denies glaucoma, denies eye injury/surgery, wears glasses or contacts. Ear/Nose/Throat: The patient denies allergies, denies hayfever, denies ear infections, and denies bloody noses. Cardiovascular: The patient denies chest pain, denies heart disease, denies high blood pressure,denies cardiac stent, denies prior heart attack, denies irregular heart beat, denies high cholesterol, denies poor circulation, denies heart failure, other cardiac issues, denies claudication, denies cold feet, denies peripheral arterial stent. Respiratory: The patient denies tuberculosis, denies pneumonia, denies frequent cough, denies pulmonary embolism, denies shortness of breath, and denies coughing up blood. Gastrointestinal: The patient denies difficulty swallowing, denies acid reflux, denies ulcers, denies vomiting, denies jaundice/hepatitis, denies gallbladder problems, denies black or tarry stools, denies hemorrhoids, denies bleeding from rectum, denies diverticulitis, NOTES constipation, denies diarrhea, denies loss of stool control, and denies hernias. Kidney/Bladder: The patient NOTES kidney stones, denies urine infections, and denies bloody urine. Skin: The patient denies a history of skin cancer, denies bleeding/changing moles, and denies a history of skin rash. Neurologic: The patient denies a history of epilepsy/convulsions, denies headaches, denies head/spinal injuries, and NOTES stroke/TIA. Psychiatric: The patient denies psychiatric medications, denies depression, and denies voices, denies substance abuse. Endocrine: The patient denies thyroid disorders, denies diabetes, and denies hormonal problems. Hematologic: The patient denies a history of bruising, denies bleeding, and denies anemia, denies blood clots. Infections: The patient denies a history of measles and mumps, denies rheumatic fever, and denies sexually transmitted diseases. Musculoskeletal: The patient denies back pain/injury, denies back problems, denies sciatica, deniesknee/foot trouble, denies arthritis, or denies gout. When was patient's last Mammogram screening? 2020 Last Colonoscopy: 2013 Ayesha Smith RN PHYSICAL EXAMINATION: General: The patient is 66 year old female, well nourished, well hydrated in no acute distress. Thepatient is oriented to time, place, and person. VITALS: Blood pressure 122/86, pulse 112, temperature (!) 35.6 C (96 F), height 162.6 cm (5' 4), weight 88.7 kg (195 lb 9.6 oz), SpO2 95 %. Body mass index is 33.57 kg/m . HEENT: Normal cephalic, ataumatic, pupils are equally round, sclera are anicteric, mucous membranesare moist, oropharynx is clear. Neck has no masses, asymmetry or lymphadenopathy. Thyroid is unremarkable. Respiratory: Clear to auscultation and percussion. Normal respiratory excursion and pattern. Cardiac: Examination is regular rate and rhythm. Abdominal exam: Soft, nontender, with no palpable masses. No hepatosplenomegaly. No palpable hernias. Rectal exam: exam deferred Extremities: no clubbing, cyanosis or edema. No adenopathy. Other: LABORATORY VALUES: As Noted RADIOLOGIC STUDIES: As Noted Assessment IMPRESSION: Left lower quadrant pain, occasional rectal bleeding right PLAN: I plan to perform lower endoscopy. We discussed the risks and benefits of the planned endoscopy. I have informed the patient that complications can occur including failure to complete the endoscopy and perforation. The patient had the opportunity to ask questions concerning the planned endoscopy. My staff has also explained the procedure to the patient in understandable terms and has given the patient printed material concerning the procedure. The patient freely consents to surgery. I plan to use golytely bowel preparation for endoscopy Diagnoses: (R10.32) LLQ pain (primary encounter diagnosis) A letter was sent to Dr. Alyssa Shaikh MD indicating the above finding for this patient. Return to Clinic: The patient is instructed to follow-up with me after the testing has been completed. Tyson Prado MD documented in this encounterK[facility]03-17-2022 Miscellaneous Notes* Telephone Encounter - Martínez Raines - 02/12/2022 4:00 PM EDT 04-21-2022 [facility]* Diagnosis LLQ pain Abdominal pain, left lower quadrant [facility]* Diagnosis LLQ pain- Primary Abdominal pain, left lower quadrant documented in this encounter [facility] noteNo assessment information availableWSt. Mary[facility] Work Phone: Evaluation note* Diagnosis Onset Date Resolution Status Atrophic vaginitis acute Vaginitis noneactive [facility] Work Phone: Hospital Discharge instructions Additional Instructions Follow-up with orthopedics as soon as possible. Return to the emergency department with fever, redness to right knee, new or worsening symptoms.[facility] Work Phone: Reason for referral (narrative)* Outpatient Procedure (Routine) - Closed Specialty Diagnoses / Procedures Referred By Saeid saenz Referred To Contact DIGESTIVE DISEASE BALTIMORE Diagnoses LLQ pain Procedures COLONOSCOPY DIAGNOSTIC COLONOSCOPY FLX DX W/COLLJ SPEC WHEN Tyson Sepulveda MD [address] [place] [address] [facility] [place] [address] [place] [address] Referral ID Status Reason Start Date Expiration Date V isits Requested Visits Authorized [id number] Closed Auto-Generate d Referral 02/12/2022 02/12/2023 1 1 [facility] for referral (narrative)No reason for referral information availableWSt. Mary[facility] Work Phone: Reason for visit Narrative* Outpatient Procedure (Routine) - Closed Specialty Diagnoses / Procedures Referred By Saeid saenz Referred To Contact DIGESTIVE DISEASE BALTIMORE Diagnoses LLQ pain Procedures COLONOSCOPY DIAGNOSTIC COLONOSCOPY FLX DX W/COLLJ SPEC WHEN Tyson Sepulveda MD [address] [place] [address] [facility] [place] [address] [place] [id number] Referral ID Status Reason Start Date Expiration Date V isits Requested Visits Authorized [id number] Closed Auto-Generate d Referral 02/12/2022 02/12/2023 1 1 [facility] Advance Directives No Advanced Directives Records FoundDocuments on File Type Date Recorded Patient Pari Mutuel Clerk Expl anation Advance Directive(s) 03/25/2022 4:30 PM Documents on File Type Date Recorded Patient Pari Mutuel Clerk Expl anation Advance Directive(s) 04/21/2022 8:06 AM Advance Directive(s) 03/25/2022 4:30 PM Documents on File Type Date Recorded Patient Pari Mutuel Clerk Expl anation Advance Directive(s) 04/21/2022 8:06 AM Advance Directive(s) 03/25/2022 4:30 PM Advance Directive Response Recorded Date/ Time Name of Medical Power of Carpet Installer LISA GARLAND [place] July 06, 2022 11:12am Living Will Yes July 06, 2022 11:12am Power of Carpet Installer Yes July 06 11:12am Advance Directive Response Recorded Date/ Time Living Will Yes July 06, 2022 11:12am Power of Carpet Installer Yes July 06 11:12am Advance Directive Response Recorded Date/ Time Do you have a Healthcare Power of Carpet Installer? No April 29, 2025 5:28pm Medications Administered Section Inactive Administered Medications - up to 3 most recent administrations Medication Order MAR Action Action Date Dose Rate Site diphenhydrAMINE 12.5-50 mg injection (BENADRYL) 12.5-50 mg, INTRAVENOUS, DIRECTED, Starting on Wed04/21/22 at 0930, Until Wed04/21/22 at 1329, DOSING DIRECTED BY PHYSICIAN FOR PROCEDURAL SEDATION ONLY, Intraprocedure Given 04/21/2022 9:30 AM EDT 50 mg fentaNYL 50 mcg/mL 25-100 mcg injection (SUBLIMAZE) 25-100 mcg, INTRAVENOUS, DIRECTED, Starting on Wed04/21/22 at 0930, Until Wed04/21/22 at 1329, DOSING DIRECTED BY PHYSICIAN FOR PROCEDURAL SEDATION ONLY, Intraprocedure Given 04/21/2022 9:26 AM EDT 50 mcg Given 04/21/2022 9:23 AM EDT 50 mcg lactated ringers iv infusion 30 mL/hr, INTRAVENOUS, CONTINUOUS, Starting on Wed04/21/22 at 0900, Until Wed04/21/22 at 0957, Preprocedure New Bag/Syringe/Bottle 04/21/2022 8:50 AM EDT 30 mL/hr 30 mL/hr midazolam (PF) 1-5 mg injection (VERSED) 1-5 mg, INTRAVENOUS, DIRECTED, Starting on Wed04/21/22 at 0930, Until Wed04/21/22 at 1329, DOSING DIRECTED BY PHYSICIAN FOR PROCEDURAL SEDATION ONLY, Intraprocedure Given 04/21/2022 9:35 AM EDT 1 mg Given 04/21/2022 9:25 AM EDT 2 mg Given 04/21/2022 9:23 AM EDT 3 mg Chief Complaint and Reason for Visit Chief Complaint PAIN IN LEFT KNEE Chief Complaint PAIN IN LEFT KNEE LEFT KNEE PAIN Chief Complaint Pain, possible STD. Reason for Visit Atrophic vaginitis Vaginitis Chief Complaint Admit Date LLQ ABD PAIN January 03, 2025 5 :45pm rt knee pain April 29, 2025 5:13p m Chief Complaint Admit Date rt knee pain April 29, 2025 5:13p m RIGHT LEG May 02, 2025 9:53a m RT KNEE MENISCUS TEAR May 04, 2025 2:1 5pm SCREENING May 08, 2025 4:11 pm RIGHT KNEE May 09, 2025 7:53 am Reason for Visit Admit Date Acute medial meniscus tear of right knee May 02, 2025 9:53am Reason for Visit Admit Date Acute medial meniscus tear of right knee May 02, 2025 9:53am Acute medial meniscus tear of right knee May 09, 2025 7:53am Chief Complaint Admit Date LLQ ABD PAIN January 03, 2025 5 :45pm rt knee pain April 29, 2025 5:13p m RIGHT LEG May 02, 2025 9:53a m Chief Complaint Admit Date rt knee pain April 29, 2025 5:13p m RIGHT LEG May 02, 2025 9:53a m RT KNEE MENISCUS TEAR May 04, 2025 2:1 5pm SCREENING May 08, 2025 4:11 pm RIGHT KNEE May 09, 2025 7:53 am right knee May 16, 2025 7:49 am Reason for Visit Admit Date Acute medial meniscus tear of right knee May 02, 2025 9:53am Acute medial meniscus tear of right knee May 09, 2025 7:53am Acute medial meniscus tear of right knee May 16, 2025 7:49am Osteoarthritis of right knee May 16, 2025 7:49am Family History No Family History Records Found Relationship Condition Age at Onset Recorded Date/T karina father Diabetes mellitus Unknown Malignant neoplasm of prostate Unknown mother Osteoarthritis Unknown sister Autoimmune disease Unknown brother Coronary artery disease Unknown Retinitis due to Toxoplasma species Unkno wn Summary Purpose Additional Source Comments Source Comments (unrecognize d section and content) In the event this informatio n is protected by the Federal Confidentiality of Alcohol and Drug Abuse Patient Records regulations: The Federal rules restrict any use of the information to criminally investigate or prosecute any alcohol or drug abuse patient.[facility] HospitalIn the event this information is protected by the Federal Confidentiality of Alcohol and Drug Abuse Patient Records regulations: The Federal rules restrict any use of the information to criminally investigate or prosecute any alcohol or drug abuse patient.[facility] HospitalIn the event this information is protected by the Federal Confidentiality of Alcohol and Drug Abuse Patient Records regulations: The Federal rules restrict any use of the information to criminally investigate or prosecute any alcohol or drug abuse patient.[facility] HospitalIn the event this information is protected by the Federal Confidentiality of Alcohol and Drug Abuse Patient Records regulations: The Federal rules restrict any use of the information to criminally investigate or prosecute any alcohol or drug abuse patient.[facility] Reason for Visit (unrecogniz ed section and content) Reason Comments 04-21-2022 [facility] Reason Comments Follow Up abd pain/colonoscopy Care Teams (unrecognized sec tion and content) Sports Management Professor Relationship Specialty Start Date End Date Alyssa Shaikh PCP - General 02/18/09 Sports Management Professor Relationship Specialty Start Date End Date Alyssa Shaikh PCP - General 02/18/09 Sports Management Professor Relationship Specialty Start Date End Date Alyssa Shaikh PCP - General 02/18/09 Team Status: Active Member Role Status Dates Dr. Chirag Owen MD Family Provider Active Dr. Chirag Owen MD Primary Care Provider Active Team Status: Inactive Member Role Status Dates Dr. Chirag Owen MD Primary Care Provider, Referring P gamaliel Active Brittany Mireles CARTON FILLING MACHINE OPERATOR, CARTON FILLING MACHINE OPERATOR-C Attending Provider Active Team Status: Inactive Member Role Status Dates Dr. Chirag Owen MD Primary Care Provider Active Brittany Mireles CARTON FILLING MACHINE OPERATOR, CARTON FILLING MACHINE OPERATOR-C Attending Provider Active Sports Management Professor Relationship Specialty Start Date End Date Chirag Owen MD [address] [place] [address] PCP - General Family Medicine 03/22/25 Team Status: Active Member Role Status Dates AMRITA Montemayor Primary Care Provider Active Team Status: Inactive Member Role Status Dates Dr. hCirag Owen MD Primary Care Provider Active Start: January 03, 2025 End: January 03, 2025 Dr. Alyssa Shaikh MD Attending Provider Active Start: January 03, 2025 End: January 03, 2025 Dr. Alyssa Shaikh MD Referring Provider Active Start: January 03, 2025 End: January 03, 2025 Team Status: Inactive Member Role Status Dates Florentin Briceno MD Emergency Provider Active Star t: April 29, 2025 End: April 29, 2025 Estefania Braxton , CARTON FILLING MACHINE OPERATOR-C Primary Care Provider Active Start: April 29, 2025 End: April 29, 2025 Team Status: Inactive Member Role Status Dates Florentin Briceno MD Attending Provider Active Star t: April 29, 2025 End: April 29, 2025 Florentin Briceno MD Emergency Provider Active Star t: April 29, 2025 End: April 29, 2025 Estefania Braxton , CARTON FILLING MACHINE OPERATOR-C Primary Care Provider Active Start: April 29, 2025 End: April 29, 2025 Team Status: Inactive Member Role Status Dates Estefania Fox , CARTON FILLING MACHINE OPERATOR-C Primary Care Provider Active Start: May 02, 2025 End: May 02, 2025 Estefania Braxton , CARTON FILLING MACHINE OPERATOR-C Referring Provider Active St art: May 02, 2025 End: May 02, 2025 Dr. Robbin Mcelroy DO Attending Provider Active Start: May 02, 2025 End: May 02, 2025 Team Status: Active Member Role Status Dates Estefaniatheresa Braxton , CARTON FILLING MACHINE OPERATOR-C Primary Care Provider Active Start: May 04, 2025 Dr. Robbin Mcelroy DO Attending Provider Active Start: May 04, 2025 Dr. Robbin Mcelroy DO Referring Provider Active Start: May 04, 2025 Team Status: Active Member Role Status Dates Estefania Fox , CARTON FILLING MACHINE OPERATOR-C Primary Care Provider Active Start: May 08, 2025 Estefania Braxton CARTON FILLING MACHINE OPERATOR-C Attending Provider Active St art: May 08, 2025 Estefania Braxton , CARTON FILLING MACHINE OPERATOR-C Referring Provider Active St art: May 08, 2025 Team Status: Inactive Member Role Status Dates Estefania Fox , CARTON FILLING MACHINE OPERATOR-C Primary Care Provider Active Start: May 09, 2025 End: May 09, 2025 Estefania Braxton CARTON FILLING MACHINE OPERATOR-C Referring Provider Active St art: May 09, 2025 End: May 09, 2025 Sharri Van CARTON FILLING MACHINE OPERATOR-C Attending Provider Active Start: May 09, 2025 End: May 09, 2025 Team Status: Inactive Member Role Status Dates Estefania Fox , CARTON FILLING MACHINE OPERATOR-C Primary Care Provider Active Start: May 04, 2025 End: May 04, 2025 Dr. Robbin Mcelroy DO Attending Provider Active Start: May 04, 2025 End: May 04, 2025 Dr. Robbin Mcelroy DO Referring Provider Active Start: May 04, 2025 End: May 04, 2025 Team Status: Inactive Member Role Status Dates Estefania Braxton NP-C Primary Care Provider Active Start: May 08, 2025 End: May 08, 2025 Estefania Braxton NP-C Attending Provider Active St art: May 08, 2025 End: May 08, 2025 Estefania Braxton NP-C Referring Provider Active St art: May 08, 2025 End: May 08, 2025 Team Status: Inactive Member Role Status Dates Estefania Braxton NP-C Primary Care Provider Active Start: May 16, 2025 End: May 16, 2025 Estefania Braxton NP-C Referring Provider Active St art: May 16, 2025 End: May 16, 2025 Dr. Robbin Mcelroy DO Attending Provider Active Start: May 16, 2025 End: May 16, 2025 Goals (unrecognized section and content) Goals may be documented in a n alternate sectionGoals may be documented in an alternate sectionGoals may be documented in an alternate sectionGoals may be documented in an alternate sectionGoals may be documented in an alternate sectionGoals may be documented in an alternate sectionGoals may be documented in an alternate sectionGoals may be documented in an alternate sectionGoals may be documented in an alternate sectionGoals may be documented in an alternate section INFORMATION SOURCE (unrecogn ized section and content) DATE CREATED AUTHOR 05/10/2025 [facility] DATE CREATED AUTHOR AUTHOR'S ANTHONYIZ ATION 07/09/2025 [facility] FOR RECORDS PERTAINING TO PATIENTS WHO ARE OR HAVE BEEN ENROLLED IN A CHEMICAL DEPENDENCY/SUBSTANCEABUSE PROGRAM, SOME INFORMATION MAY BE OMITTED. This clinical summary was aggregated from multiple sources. Caution should be exercised in using it in the provision of clinical care. This summary normalizes information from multiple sources, and as a consequence, information in this document may materially change the coding, format and clinical context of patient data. In addition, data may be omitted in some cases. CLINICAL DECISIONS SHOULD BE BASED ON THE PRIMARY CLINICAL RECORDS. [employer] [facility]. provides no warranty or guarantee of the accuracy or completeness of information in this document.
[2025-07-10] MEDS: Lactated Ringers 1,000 ML 15 ML IV (07:03)
--- NOTE | 2025-07-10 07:10 | HP.PCM_ITS ---
History and Physical Date of Admission: 07/10/25 [facility] [address] [place] [address] OFFICE VISIT Date of Service: 05/16/25 MR#: [id number] Acct: [id number] Name: NEGRO PITT Rep #: [id number] : 1955 Provider: Dr. Robbin Mcelroy DO Age/Sex: 69/F Location: [facility] Status: Signed Intake Vital Signs 05/09/2507:54 Height 5 ft 4 in Weight: 185 lb BMI 31.7 Intake Visit Reasons: right knee Chief Complaint: Discuss Surgery Accompanied by: Is patient in pain?: Yes Pain scale (1-10): 3 Allergies No Known Allergies Allergy (Verified 05/16/25 08:00) Medications ?Medication ?Instructions ?Recorded ?Confirmed ?Type etodolac 500 mg tablet 500 mg PO BID #40 tabs 05/16/25 05/16/25 Rx Have you fallen in the past year?: Yes PFSH Medical History Pain of left thumb History of meniscal tear Left shoulder pain COVID-19 Surgical History S/P tubal ligation Family History Father Diabetes Prostate cancerMother OsteoarthritisSister Autoimmune diseaseBrother CAD (coronary artery disease) Retinal toxoplasmosis Social History Smoking Status: Never smoker alcohol intake: current alcohol intake frequency: holidays/special occasions only substance use type: does not use caffeine: Yes what type of physical activity do you participate in: none seatbelt use: always do you feel safe at home: Yes additional social history: HPI right knee Details: This documentation accurately reflects the service provided and the decisions made by me, Dr. Robbin Mcelroy DO 05/16/25 0733. Part of today?s visit was documented by Marianne Cuellar ATC, acting as scribe. NEGRO PITT is a 69 year old F here today for right knee pain. Patient is here to discuss surgery for the knee. She rates the knee pain a 3/10 today. She states that it is stiff in the morning then loosens up and does pretty well and by the end of the day has more pain if she overdoes it. She does get some painful occasional catching. She has fallen a couple times she hurt the knee. She is able to fully bend and straighten her knee now 05/02/2025 office visit: here today for ER follow-up 04/29/2025. According to record she had a fall a few days prior to ER visit and she was able to ambulate however her on 04/29/25 her pain began to increased she did not have any fevers or chills or redness but she had difficulty with ambulating. She did have x-rays which were unremarkable in the emergency room and she was given oxycodone and a knee immobilizer and a walker. Patient states the knee had been hurting for a couple weeks and she thinks her knee gave out on her and she fell on the concrete on Wednesday04/27/2025. She was limping after the fall but doing okay. On Wednesday she went to [employer]ae[employer] and tried to go to a car show and get into a truck and she felt and a heard a crack in the knee but unsure where exactly she felt it. This caused a dramatic increase in her pain. she describes the pain over the anterior and posterior knee and describes it as a constant ache. She continues to wear the immobilizer and states it reminds her not to bend the knee. She does take it off at night to sleep. Patient is taking the oxycodone that was given at the ER and she takes it at night and it does help her sleep. She denies any prior injury, injections, physical therapy or prior sugery. Plan:Patient is had pain preceding a very low traumatic stepping into her truck where she felt a painful pop. Reviewed x-rays that were done in the ER prior. Upon evaluation there is a possibility that she tore her medial meniscus and with the block in her motion would like to get an MRI. If there is a medial meniscal tear of the knee we might need to arthroscopically remove some meniscal tissue. If she feels like she needs the immobilizer for extra support during ambulation she may continue to use that as well as the walker. However she can remove it when she is not ambulating and try to get the knee moving. Follow up after MRI is completed to go over results or sooner if pain, swelling, numbness or associated symptoms, or concerns develop. All questions answered. Patient in agreement of plan. Ortho Exam General General: Yes no acute distress and Yes well groomed Neurologic: Yes alert and Yes oriented x3 Psychologic: Yes reasonable and appropriate Right Knee Skin/Wound: Yes CDI, No erythema, No ecchymosis and No swelling Knee ROM: Yes ROM-Extension -20 to 0 and No ROM-Flexion 0-140 (120) Examination: Yes Med jt line tenderness Stability: NML: Valgus 0, NML: Valgus 30, NML: Varus 0 and NML: Varus 30 Patella Translation: 1 KNEE: There is no joint effusion there is no sign of infection or DVT no gross motor or sensory deficits Left Knee Patella Translation: 1 Head: Normocephalic Atraumatic Chest: symmetrical rise, non-labored breathing, no audible wheeze Abdomen: no guarding, non-rigid Office Procedures Ortho Injections Injections Yes Knee Right Is this a patient provided medication?: No Details: Obtained consent for injection. Under sterile conditions, injected the patients right knee with 1.5cc Bupivacaine, 1.5cc Lidocaine, 1.0cc Depomedrol. The patient tolerated the injection well without any noted complication. Patient should call our office if redness develops, pain worsens or if they have any concerns. Office Meds Depo-Medrol 40 mg/mL suspension for injection Performing Provider: Robbin Mcelroy DO Performing Location: [facility] Administered by: Robbin Mcelroy DO on 05/16/25 08:14 Dose Route Admin Location Dispensed Lot Number Expiration Date NDC [employer] Landscape [employer] 40 mg intra-articular Right Knee 1 mL [id number] 02/27/27 9934-2234-25 [facility] Supplemental Info 05/04/2025 MRI right knee: There is a root tear of the posterior horn medial meniscus. Irregular cartilage thinning of the lateral patellar facet. There is cartilage thinning of the medial femoral condyle. 04/29/2025 x-ray right knee: Relatively preserved joint spaces, mild spurring of the lateral patellar facet there is a superior patellar enthesophyteno joint effusion or soft tissue swelling mild osteoarthritis Coding Level of Care Code Off vis,est,level 3 Diagnoses Acute medial meniscus tear of right knee, initial encounter S83.241A Encounter type: initial encounter Primary osteoarthritis of right knee M17.11 Osteoarthritis type: primary CPT Codes breakfast host.knee ([id number]) Assessment and Plan Assessment and Plan (1) Acute medial meniscus tear of right knee: Status: Acute Qualifiers: Encounter type: initial encounter Qualified Code(s): S83.241A - Other tear of medial meniscus, current injury, right knee, initial encounter (2) Osteoarthritis of right knee: Status: Acute Qualifiers: Osteoarthritis type: primary Qualified Code(s): M17.11 - Unilateral primary osteoarthritis, right knee Orders: Orders Ortho Injections Today M17.11 - Unilateral primary osteoarthritis, right knee, S83.241A - Other tear of medial meniscus, current injury, right knee, initial encounter Medications: New etodolac Take regularly next 2 weeks then as needed. Do not take in combination with other NSAID. Tylenol is okay 500 mg PO BID 40 tabs 1RF Plan Reviewed right knee MRI with the patient and explained that the radiologist read a root tear of the posterior horn of the medial meniscus as well as arthritis in the medial knee and under the patella. Explained that the catching she is experiencing could be caused by the tear or the rough surface from the arthritis. I did not believe it is a full-thickness root tear I think it is partial at looks pretty small her options would be: do nothing, steroid injection to get rid of the inflammation, or arthroscopy for partial medial meniscectomy. Her symptoms seem to be most consistent with inflammation, she try a steroid injection to see how much pain and inflammation will be taken care of. If the injection does not give her a lot of relief we can then discuss proceeding with an arthroscopy. We will cancel the surgery that we wrote in for May 29. Recommended she try a prescription strength anti-inflammatory for the next 2 weeks to get rid of the pain and inflammation. She should not take any additional Ibuprofen or Aleve but if she needs to she can take Tylenol. After 2 weeks she can put it away and take it PRN. Patient would like to proceed with a steroid injection today. If after 4-6 weeks she feels like the injection did not give her relief she can give us a call and discuss her next steps. Follow up in an as needed basis or sooner if pain, swelling, numbness or associated symptoms, or concerns develop. All questions answered. Patient in agreement of plan. Clinical Quality Measures Falls Risk Screening/Assistive Devices Have you fallen in the past year?: Yes 05/16/25 0900 <Electronically signed by Robbin Mcelroy DO> Date Robbin Mcelroy DO I have examined the patient and the H&P has been reviewed. There are no clinical changes since date of exam.
--- NOTE | 2025-07-10 07:21 | PRE.ANES_ITS ---
ASA Classification* ASA Classification ASA Classification: 2 Assessment & Plan Anesthesia* Anesthesia Assessment Anesthesia Assessment: Discussed sedation and/or anesthesia options, risks, benefits, and alternatives with patient/parents/legal guardian/POA. Questions invited. The patient/parents/legal guardian/POA seems to understand and agrees to proceed with anesthesia plan. Reviewed the physical assessment, medical history, allergy history and patient home medications list prior to surgery/procedure/anesthetic and documented any changes. Performed airway and anesthesia risk assessments. Anesthesia Type Anesthesia Type: General History Source History Obtained from:: Patient and Chart Anesthesia Focused Assessment* Temperature: 97.8 F Pulse Rate: 98 Blood Pressure: 128/85 Respiratory Rate: 18 Pulse Ox: 95 Oxygen Delivery Method: Room Air Airway Assessment Mouth opens: >3 cm Mallampati Score: II Teeth Condition: Caps/Crowns (Patient has multiple crowns. They are all tight.) Neck Range of motion (ROM): Full ROM Labs Anesthesia Preop lab: CBC WBC 5.5 K/mm3 (4.4-11.0) 07/31/22 09:08 07/31/22 RBC 4.54 M/mm3 (4.2-5.4) 07/31/22 09:08 07/31/22 Hgb 13.9 g/dL (12.0-15.0) 07/31/22 09:08 07/31/22 Hct 41.8 % (37-47) 07/31/22 09:08 07/31/22 Plt Count 276 K/mm3 (150-450) 07/31/22 09:08 07/31/22 CHEMISTRY Potassium 4.0 mmol/L (3.5-5.1) 07/31/22 09:08 07/31/22 Sodium 139 mmol/L (136-145) 07/31/22 09:08 07/31/22 BUN 17 mg/dL (7-18) 07/31/22 09:08 07/31/22 Creatinine 0.67 mg/dL (0.55-1.02) 07/31/22 09:08 07/31/22 Glucose 95 mg/dL (74-106) 07/31/22 09:08 07/31/22 COAG Pre-Assessment Diagnosis/Proposed Procedure Planned Operative Procedure(s): (R) Right knee Arthroscopy, partial medial meniscectomy Anesthesia History Anesthesia History - internist medical doctor md: Anesthesia History - internist medical doctor md Hx Hospitalization No 06/26/25 08:11 Any Problems With Anesthesia No 06/26/25 08:11 Cholinesterase deficiency No 06/26/25 08:11 You/Your Family Experience No 06/26/25 08:11 fever (hyperthermia) with Relationship Recent Exposure to Contagious No 07/10/25 06:56 Disease Does patient have nerve No 06/26/25 08:11 stimulator Patient instructed to have device shut off --Does patient have Pacemaker No 07/10/25 06:56 or ICD? When Was Last Pacemaker Check QUESTION #4 FULL TEXT: You/Your Family Experience fever (hyperthermia) with Anesthesia Last Oral Intake Last Oral intake: Last Oral Intake NPO since 01:30 07/10/25 06:56 Meds taken in AM with sips of No 07/10/25 06:56 water? Meds patient instructed to take am of surgery Any additional information?: Yes NPO since: :30 (Patient had water at 1:30 AM.) Meds taken in AM with sips of water?: No PONV PONV - internist medical doctor md: PONV - internist medical doctor md Female Yes 06/26/25 08:11 HX of Motion Sickness Yes 06/26/25 08:11 HX of N/V After Surgery No 06/26/25 08:11 Non-Smoker Yes 06/26/25 08:11 Duration of Surgery greater Yes 06/26/25 08:11 than 60 minutes Number of Risk Factors 4 06/26/25 08:11 PONV Score Severe Risk 06/26/25 08:11 Height & Weight Height & Weight: Anesthesia: Height & Weight Height 5 ft 4 in 07/10/25 06:56 Weight: 89 kg 07/10/25 06:56 Body Mass Index (BMI) 33.7 07/10/25 06:56 Respiratory Assessment Respiratory Assessment - internist medical doctor md: Respiratory Tract Infection Hx - internist medical doctor md Hx Respiratory Tract Infection No 06/26/25 08:11 STOP Sleep Apnea STOP Sleep Apnea - internist medical doctor md: STOP Sleep Apnea - internist medical doctor md Hx Hypertension No 06/26/25 08:11 Hx Sleep Apnea No 06/26/25 08:11 CPAP BIPAP Do you snore loudly (louder No 06/26/25 08:11 than talking or can be heard Do you often feel tired/ No 06/26/25 08:11 fatigued/ sleepy during daytime? Has anyone observed you stop No 06/26/25 08:11 breathing during sleep? STOP Results Negative 06/26/25 08:11 QUESTION #5 FULL TEXT : Do you snore loudly (louder than talking or can be heard through closed doors)? 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 Specify any problems Hx of Preganancy in last 3 No 06/26/25 08:11 Months Nurse Filling Out Transfusion MGRIFFITH 06/26/25 08:11 & Questions: Date: 06/26/25 06/26/25 08:11 Time: 08:13 06/26/25 08:11 Patient unable to answer at this time (ie. confused, unrespo /Reproduction History /Reproductive History - internist medical doctor md: /Reproductive Hx- internist medical doctor md Hx Now No 06/26/25 08:11 Gestational Age (in weeks): EDC: Hx Hx Para Hx Section SAB No 06/26/25 08:11 Active Medications Active Medications: Current Medications Generic Name Dose Route Start Last Admin Trade Name Freq PRN Reason Stop Dose Admin Cefazolin Sodium 2 gm/ Sodium 110 mls @ 200 mls/hr 07/10/25 08:15 Chloride IV 07/10/25 08:47 INTRAOP ONE Lactated Ringer's 1,000 mls @ 15 mls/hr 07/10/25 06:45 07/10/25 07:03 IV 15 mls/hr .Q48H TRINA Administration PFSH Medical History Wears glasses Post-menopausal History of steroid therapy Easy bruising Restless legs History of diverticulitis Shortness of breath on exertion Non-smoker Pain of left thumb History of meniscal tear Left shoulder pain Home Medications ?Medication ?Instructions ?Recorded ?Last Taken ?Type NK 07/10/25 Unknown History Allergy/AdvReac Type Severity Reaction Status Date / Time No Known Allergies Allergy Verified 07/10/25 06:52 Family History Father Diabetes Prostate cancer Mother Osteoarthritis Sister Autoimmune disease Brother CAD (coronary artery disease) Retinal toxoplasmosis Surgical History History of colonoscopy History of lateral meniscus repair of left knee S/P tubal ligation Social History Smoking Status: Never smoker alcohol intake: current alcohol intake frequency: holidays/special occasions only substance use type: does not use caffeine: Yes what type of physical activity do you participate in: none seatbelt use: always do you feel safe at home: Yes additional social history: Review of Systems (Anesthesia) ROS Narrative System reviewed and no additional complaints, except as documented.
[2025-07-10] MEDS: Cefazolin 1 GM/5 ML Vial 2 GM IV (08:05)
[2025-07-10] MEDS: Lidocaine 2% (5ml sdv) 5 ML VIAL.MPF 10 ML IV (08:05)
[2025-07-10] MEDS: fentaNYL 100 MCG/2 ML Ampul 200 MCG IV (08:22)
[2025-07-10] MEDS: Ketorolac 30 MG/ML Syringe 15 MG IV (08:36)
[2025-07-10] MEDS: Epinephrine (1 mg/ml) 1 MG/ML VIAL (08:39)
[2025-07-10] MEDS: Lidocaine 1% /Epi 1:100 (20ml) 20 ML Vial (08:39)
--- NOTE | 2025-07-10 08:51 | PCM.OPRPT ---
Operative Report (Standard) Operative Information Date of Procedure: 07/10/25 Pre-Operative Diagnosis: Right knee medial meniscus tear DJD Post-Operative Diagnosis: Same Surgery/Procedure Performed: Right knee arthroscopy partial medial meniscectomy and chondroplasty finished hardware erector: No Type of Anesthesia: General RN Documented Start/Stop Times: Operation Date: 07/10/25 08:15 Case Time Into Pre-Op 07/10/25 06:32 Anesthesia Start 07/10/25 08:00 Into Room 07/10/25 08:00 Procedure Start 07/10/25 08:18 Procedure End 07/10/25 08:39 Anesthesia End 07/10/25 08:49 Out of Room 07/10/25 08:49 Procedure Start Time: 08:18 Procedure Stop Time: 08:39 Select all DRAINS/GRAFTS/IMPLANTS that apply: None Estimated Blood Loss: 5 Specimen collected: No Description of surgery: Preop diagnosis: Right knee partial root tear medial meniscus DJD Postoperative diagnosis: Right knee partial radial root tear with horizontal component of posterior horn 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 The patient did wish to proceed with an elective arthroscopic surgery to attempt to alleviate the symptoms. Risk benefits and alternatives of the procedure were reviewed including risk of bleeding infection nerve artery tissue damage need for further surgery continued pain and expected postoperative course. Procedure: The patient was met in the preoperative holding area. The operative extremity was identified by both patient and physician and family and marked. Patient was brought back to the operating room on a wheeled cart and transferred to the operating table in the supine position. Anesthesia was started. A well-padded tourniquet was placed on the operative extremity. A lower extremity leg castellanos was secured to the operative extremity. The contralateral extremity was well-padded and the end of the bed was flexed to 90 degrees. The patient was prepped and draped in the usual sterile fashion. A timeout was called to ensure the proper patient, procedure, and extremity were being contemplated. 0.5% Marcaine with epinephrine was injected into the planned incisional areas under the skin only. An Esmarch was used to exsanguinate the extremity and the tourniquet was inflated. An 11 blade scalpel was used to make a stab incision in the anterior lateral portal. The arthroscope was inserted into the intercondylar notch and inflow and outflow tubes were attached. Arthroscopic visualization began. The medial compartment was entered. An 18-gauge spinal needle was used to establish the placement for anterior medial portal. An 11 blade scalpel was used to make a stab incision. Blunt probe was inserted followed by a meniscal probe. Immediately there is no to be diffuse grade 3 cartilage wear of the medial femoral condyle and with the use of a hook probe a partial root tear of the medial meniscus with a horizontal degenerative component of the posterior horn was found with use of arthroscopic biting instruments and a shaver partial medial meniscectomy was performed gentle chondroplasty was performed over the medial femoral condyle for loose cartilage fraying. The ACL was found to be intact. The lateral compartment was entered there was noted to be grade 2 softening and fibrillation with some irregularity of the lateral femoral condyle however no meniscal pathology. The arthroscope was switched to the medial portal to complete the procedure. The medial and lateral gutters were inspected and were free of loose bodies. The patellofemoral joint was inspected and demonstrate grade 3 cartilage fraying of the patellar apex gentle chondroplasty was performed to remove loose fraying cartilage.. There was good patellar tracking. The knee was thoroughly irrigated and drained. An intra-articular injection with 5 cc 0.5% Marcaine plain and 40 mg of Depo-Medrol was injected intra-articularly. The arthroscope was removed the portals were closed with 3-0 nylon arthroscopic stitches. Followed by Xeroform 4 x 4's ABDs web roll and an Yuriy wrap. The tourniquet was let down and the drapes were removed. All counts were correct. The patient was brought back to the PACU in stable condition. Surgical Findings: As above Complications Complications: No
--- NOTE | 2025-07-10 08:56 | DCINST_ITS ---
Discharge Instructions Diet Discharge Diet: No restrictions Activity Weight Bearing Status: Full weight bearing Dressing / Incision Call your doctor if you observe: Shortness of breath and Chest pain Additional Dressing/Incision Instructions:: Ice and elevate next 72 hours .keep dressing on clean and dry for 48 hours then may remove begin showering daily but do not submerge in tub or pool. After shower may apply Band-Aids . Encourage knee range of motion weightbearing as tolerated, use crutches until confident in knee then may discontinue. No strenuous activity. When not ambulating keep iced and elevated next 72 hours. Do not mix pain medication with recreational drugs or alcohol only take as prescribed can be addictive and abusive, call with any questions or concerns. Follow Up Care Please Follow Up With: Robbin Mcelroy DO When: 2 weeks Test Results: Test results from this visit will be discussed in further detail at your follow- up appointment, if applicable. Discharge Plan Admission Primary Reason for Your Visit: Right knee arthroscopy Attending Provider: Robbin Mcelroy Primary Care Provider: Estefania Braxton Instructions Print Language: Nepali Discharge Orders/Prescriptions Prescriptions: New acetaminophen 500 mg tablet 1,000 mg PO Q6H Qty: 40 0RF oxycodone 5 mg tablet 5 - 10 mg PO Q4H PRN (Reason: pain) 7 Days Qty: 20 0RF Referrals / Follow Up: Estefania Braxton NP-C [Primary Care Provider] - Disposition Disposition (needs filled in before D/C Order can be placed): Home, Self Care
--- NOTE | 2025-07-10 08:56 | PCM.POST.ANE ---
Anesthesia: Postop Eval I Current Vital Signs Temperature: 97.4 F Pulse Rate: 86 Blood Pressure: 154/83 Respiratory Rate: 16 Pulse Ox: 99 Oxygen Delivery Method: Room Air Assessment Airway patent: Yes Spontaneous unlabored respirations: Yes Mental status: Awake and Calm nausea: No Vomiting: No Anesthesia Complication: No Fluid Hydration Crystalloid volume administer (ml): 700 Total IV fluid infused: 700 Progress Note Anesthesia document: Postop Eval 1 completed: Yes
--- NOTE | 2025-07-10 12:30 | POSTOPAN2_ITS ---
Anesthesia Postop Eval I Sum Postop Eval Completion status Anesthesia document: Postop Eval 1 completed: Yes Anesthesia Postop Eval I Summary Anesthesia Postop Eval I Summary: Anesthesia Postop Eval I: Assessment Summary Airway patent Yes 07/10/25 08:56 B [email or web address] Spontaneous unlabored Yes 07/10/25 08:56 B [email or web address] respirations Mental status Awake,Calm 07/10/25 08:56 B [email or web address] nausea No 07/10/25 08:56 B [email or web address] Vomiting No 07/10/25 08:56 B OPERATORHI Anesthesia Postop Eval I: Fluid Summary Crystalloid volume administer 700 07/10/25 08:56 B [email or web address] (ml) Colloids volume administered ( ml) Blood Product volume administered (ml) Total IV fluid infused 700 07/10/25 08:56 B [email or web address] Anesthesia Postop Eval I: Summary Notes Anesthesia Complication No 07/10/25 08:56 B OPERATORHI Anesthesia Complication Comment: Post-operative progress note Anesthesia: Postop Eval II Evaluation Mental status: Awake and Calm Pain Level: 2 nausea: No Vomiting: No Complications Anesthesia Complication: No
--- NOTE | 2025-07-10 12:30 | PCM.POSTANE2 ---
Anesthesia Postop Eval I Sum Postop Eval Completion status Anesthesia document: Postop Eval 1 completed: Yes Anesthesia Postop Eval I Summary Anesthesia Postop Eval I Summary: Anesthesia Postop Eval I: Assessment Summary Airway patent Yes 07/10/25 08:56 VET [email or web address] Spontaneous unlabored Yes 07/10/25 08:56 VET [email or web address] respirations Mental status Awake,Calm 07/10/25 08:56 VET [email or web address] nausea No 07/10/25 08:56 VET [email or web address] Vomiting No 07/10/25 08:56 VET TECHHI Anesthesia Postop Eval I: Fluid Summary Crystalloid volume administer 700 07/10/25 08:56 VET [email or web address] (ml) Colloids volume administered ( ml) Blood Product volume administered (ml) Total IV fluid infused 700 07/10/25 08:56 VET [email or web address] Anesthesia Postop Eval I: Summary Notes Anesthesia Complication No 07/10/25 08:56 VET TECHHI Anesthesia Complication Comment: Post-operative progress note Anesthesia: Postop Eval II Evaluation Mental status: Awake and Calm Pain Level: 2 nausea: No Vomiting: No Complications Anesthesia Complication: No
== END 2025-07-10 10:35 | disposition home or self-care (01) ==
LOC: SDC 06:35 → AC 06:35
PROVIDERS: PCP Nurse Practitioner Family; Referring Provider Orthopaedic Surgery; Visit Provider Orthopaedic Surgery
PROC: (CPT 29870; principal; 2025-07-10 07:55)
DX: S83.241A Other tear of medial meniscus, current injury, right knee, initial encounter (principal); M17.11 Unilateral primary osteoarthritis, right knee; M22.41 Chondromalacia patellae, right knee; W19.XXXA Unspecified fall, initial encounter
CPT/HCPCS: 29881; J2405

== ENCOUNTER 2025-08-17 15:30 | Outpatient (RCR) | payer MEDICARE, SELFPAY ==
--- NOTE | 2025-08-03 16:34 | HP.PTEVAL_ITS ---
Patient's Visit Information Visit Information Visit Information: NEGRO PITT is a 70 year old F referred to Physical Therapy by Dr. Robbin Mcelroy DO with a diagnosis of S/P R KNEE MENISECTOMY AND CHONDROPLASTY MEDIAL FEMORAL CONDYLE AND 07/10/25. Date of Evaluation: 08/03/25 Physical Therapist: Madhavi Desir, PT, Cert MDT Visit Plan Frequency: 2-3x /Week Duration: 4-6 Weeks Plan: CORE STRENGTHENING R HIP, KNEE AND ANKLE STRENGTHENING ALL PLANES WITH FOCUS ON CLOSED CHAIN KNEE STRENGTHENING AVOIDING OPEN CHAIN LAQ'S AND HS CURLS. GAIT TRAINING. CP Subjective Subjective: Work/Leisure: RECENTLY RETIRED FROM [employer] FROM [employer] AND [employer]. Present symptoms: R KNEE PAIN AND L KNEE PAIN TOO. VISHAL HART PAIN. ALSO ACHY ALL OVER SINCE VACCINE 07/26/25. DENIES NUMBNESS AND TINGLING. Present since: FEBRUARY 2025 Pain Scale: WORST 5/10, LEAST 0/10 Currently: 0/10 Is it getting better, worse or staying the same: GETTING BETTER Commenced as a result of: NO APPARENT REASON Symptoms at onset: PAIN ON THE INSIDE OF THE RIGHT KNEE. A LOUD CRACK WHEN STEPPING UP INTO A TRUCK THEN COULDN'T BUT ANY WEIGHT ON IT. Worse: TRYING TO GET UP AFTER SITTING, PROLONGED STANDING IN ALEVISM Better: ELOISE CACERES Disturbed sleep: JAK Previous history/Previous treatment: UNREMARKABLE Treatment this episode: PATIENT REPORTS TRYING A CORTISONE INJECTION PRIOR TO SURGERY AFTER MRI WITHOUT BENEFIT. Gait: PATIENT REPORTS HAVING 7 STEPS IN HOUSE THAT SHE DOES FREQUENTLY WITH ONE HR - SOMETIMES RECIP AND SOMETIMES ONE AT A TIME. STATES SHE IS WALKING AROUND STORES AND HASN'T USED ANY AD'S SINCE SURGERY BUT LIMPS. Bowel or Bladder Dysfunction: NO Accidents: NO Unexplained weight loss: NO Imaging: R KNEE MRI PRIOR TO SX. PMH/Recent major surgery: UNREMARKABLE. L KNEE SURGERY FOR MENISCUS TEAR ABOUT 5-6 YEARS AGO. V[facility]AL [facility] OTHER: LEAVING TO VISIT DAUGHTER IN [place] IN 2 WKS. (LONGEST LEG OF FLIGHT IS 17 HRS). ALSO [place] TO [place] [facility] [place]. Objective Objective: THIS PATIENT AMBULATES INDEP'LY INTO PT LIMPING ON R LE WITHOUT ANY AD'S. Sensory deficit: VISHAL LE LIGHT TOUCH SENSATION IS GROSSLY INTACT AND SYMMETRICAL. ROM deficit: R KNEE = 8 -0 - 115 DEG FLEX. L KNEE = 5 - 0 - 130 DEG FLEX. VISHAL HIP FLEXOR AND CALF TIGHTNESS. Motor deficit: R HIP 4-/5, KNEE 3-/5, ANKLE 4/5. LLE 5/5. STEPS: UNABLE TO ASCEND AND DESCEND STEPS RECIP WITH ONE HR WITHOUT GROSS DEVIATION. ABLE TO EASILY GO UP AND DOWN WITH ONE HR WITH STEP TO PATTERN. Core strength: [facility] Palpation: INCISIONS ARE WELL HEALED. MILD TENDERNESS AND SWELLING R KNEE COMPARED TO L. Balance/Special Test Scores Lower Extremity Functional Score: 46 Goals Goal 1:: DECREASE C/O R KNEE PAIN WITH NORMAL ADL'S TO 0-2/10 Goal Time Frame: 4-6 Weeks Goal 2:: DECREASE EDEMA OF R KNEE TO SYMMETRICAL WITH L KNEE Goal Time Frame: 4-6 Weeks Goal 3:: INCREASE R KNEE ROM TO SYMMETRICAL WITH L KNEE (5- 0 - 130 DEG FLEX) Goal Time Frame: 6-8 Weeks Goal 4:: INCREASE RLE STRENGTH TO 5/5 THROUGHOUT Goal Time Frame: 6-8 Weeks Goal 5:: PATIENT WILL BE ABLE TO ASCEND AND DESCEND STEPS RECIP WITH ONE HR WITHOUT LIMITATION Goal Time Frame: 6-8 Weeks Goal 6:: INDEP HEP Goal Time Frame: 6-8 Weeks Rehabilitation Potential Physical Therapy Diagnosis: R LE WEAKNESS AND STIFFNESS S/P KNEE SURGERY WITH GAIT LIMITATIONS/DEVIATIONS Rehabilitation Potential: Good Anticipated Interventions Patient/Client Instruction: Educate patient on: Condition, Plan of Care and Risk Factors For the Purpose of:: To improve self management Therapeutic Exercise to Include: Strength training, Balance training, Flexibilty training, Gait and locomotor training, Neuromotor development and Active ROM For the Purpose of:: To decrease pain, To decrease swelling/inflammation, To increase ROM, To improve muscle performance and motor function, To improve ability to perform ADL's, To increase tolerance to activity/condition/position, To improve ability of physical actions for home/community/work/leisure, To improve gait and locomotor functions, To increase flexibility/ROM and To improve self management Manual Therapy Techniques to Include: Mobilization Comment: PATELLAR MOBILIZATION For the Purpose of:: To decrease soft tissue restriction and To increase flexibility/ROM Cryotherapy (ice pack, ice massage): Yes For the Purpose of:: To decrease pain and To decrease swelling/inflammation Text: Thank you for the opportunity to evaluate your patient. For Medicare and Medicare HMO plans, please review the plan of care and approve it. It will need to be FAXED BACK to us at [phone] for Medicare purposes. For Medicare only, by signing this I certify the plan of care. Please let me know if there are questions or concerns regarding this plan of care. Physician Signature: Date:
== END 2025-08-17 19:00 | disposition home or self-care (01) ==
LOC: PT 15:30
PROVIDERS: PCP Nurse Practitioner Family; Referring Provider Orthopaedic Surgery; Visit Provider Orthopaedic Surgery
DX: S83.241D Other tear of medial meniscus, current injury, right knee, subsequent encounter (principal); G89.18 Other acute postprocedural pain
CPT/HCPCS: 97162; 97530

== ENCOUNTER → 2025-10-01 | Outpatient (CLI) | payer MEDICARE, SELFPAY ==
[2025-10-01 15:59] LABS: CRP 71.90 mg/L (0.0-3.0)
[2025-10-03 10:08] LABS: ANTINUCLEAR ANTIBODIES DIRECT Negative (Negative)
== END | disposition home or self-care (01) ==
PROVIDERS: PCP Nurse Practitioner Family; Visit Provider Nurse Practitioner Family
DX: M25.50 Pain in unspecified joint (principal)
CPT/HCPCS: 36415; 85652; 86038; 86140; 86200; 86225; 86431; 86617